=== PATIENT | female | born 1955 | race Caucasian/White ===

== ENCOUNTER 2016-03-06 17:37 | Inpatient (IN) ==
[2016-03-09] MEDS ORDERED: *HR* Warfarin 2.5 MG TABLET PO SCH (18:00)
[2016-03-09] MEDS ORDERED: Dextrose Gel 15 GM PO PRN ×2 (20:09)
[2016-03-09] MEDS ORDERED: D5% in Water 1,000 ML IV PRN (20:09)
[2016-03-09] MEDS ORDERED: *HR* Dextrose 50 % in Water (Syg) 50 ML SYRINGE IVP PRN (20:09)
[2016-03-09] MEDS ORDERED: Ondansetron 4 MG/2 ML VIAL IVP PRN (20:28)
[2016-03-09] MEDS ORDERED: Gabapentin 300 MG CAPSULE PO SCH (21:00)
[2016-03-09] MEDS ORDERED: *HR* Warfarin 5 MG TABLET PO SCH (21:00)
[2016-03-09] MEDS ORDERED: Insulin DETEMIR 100 UNIT/ML per UNIT SQ SCH (21:00)
[2016-03-09] MEDS ORDERED: Nystatin POWDER 30 GM BOTTLE TP SCH (21:00)
[2016-03-09] MEDS: Gabapentin 300 MG CAPSULE PO SCH (21:47)
[2016-03-09] MEDS: Nystatin POWDER 30 GM BOTTLE TP SCH (21:56)
[2016-03-09] MEDS: *HR* Warfarin 2.5 MG TABLET PO SCH (21:56)
[2016-03-10 05:33] LABS: Basophils % 0.2 %; Eosinophils # 0.1 K/mcL (0.0-0.6); Eosinophils % 0.4 %; Hematocrit 30.4 % (35.3-44.9); Immature Granulocytes % 1.8 % (0-4); Lymphocytes # 1.9 K/mcL (0.6-4.6); Lymphocytes % 10.3 %; Mean Corpuscular HGB Conc 32.9 g/dL (31.6-35.5); Mean Corpuscular Hemoglobin 30.7 pg (28.0-33.3); Mean Corpuscular Volume 93.3 fL (83.0-100.0); Mean Platelet Volume 9.1 fL (9.4-12.4); Monocytes % 6.7 %; Platelet Count 611 K/mcL (140-400); Red Blood Count 3.26 M/mcL (3.82-4.97); Red Cell Distribution Width 14.2 % (11.5-14.5); Segmented Neutrophils % 80.6 %
[2016-03-10 05:50] LABS: Monocytes # 1.3 K/mcL (0.0-1.3)
[2016-03-10 05:51] LABS: BUN/Creatinine Ratio 17 (6-26); Blood Urea Nitrogen 10 mg/dL (7-20); Calcium 9.1 mg/dL (8.6-10.8); Carbon Dioxide 26 mEq/L (19-29); Chloride 101 mEq/L (98-109); Glucose 157 mg/dL (70-99); Osmolality,Calculated 288 (280-300); Sodium 138 mEq/L (136-145); eGFR For African Americans > 60 (> 60); eGFR For Non-African Americans > 60 (> 60)
[2016-03-10 06:01] LABS: INR 1.9; Prothrombin Time 20.5 Seconds (9.4-12.1)
[2016-03-10 06:03] LABS: Activated Partial Thrombo Time 33.8 Seconds (26.0-36.0)
[2016-03-10] MEDS ORDERED: Insulin LISPRO 300 UNITS/3 ML VIAL SQ SCH (08:00)
[2016-03-10] MEDS: *HR* Glimepiride 2 MG TABLET PO SCH (08:46)
[2016-03-10] MEDS: Insulin LISPRO 300 UNITS/3 ML VIAL SQ SCH ×3 (08:46→16:46)
[2016-03-10] MEDS: Diltiazem CD (24hr) 300 MG CAPSULE PO SCH (08:49)
[2016-03-10] MEDS: Fluconazole 100 MG TABLET PO SCH (08:50)
[2016-03-10] MEDS: Nystatin POWDER 30 GM BOTTLE TP SCH ×2 (08:51→20:57)
[2016-03-10] MEDS: Gabapentin 300 MG CAPSULE PO SCH ×2 (08:51→20:56)
[2016-03-10] MEDS: WATER IVPB SCH (08:52)
[2016-03-10] MEDS: D5 IVPB SCH (08:52)
[2016-03-10] MEDS: (Terbinafine Hcl [Terbinafine Hcl] 250 MG) PO SCH (08:52)
[2016-03-10] MEDS: CEFTRIAXONE IVPB SCH (08:52)
[2016-03-10] MEDS: Multivit/Ca/Min/Fe/FA 1 TAB TABLET PO SCH (08:53)
[2016-03-10] MEDS ORDERED: *HR* Glimepiride 2 MG TABLET PO SCH (09:00)
[2016-03-10] MEDS ORDERED: Fluconazole 100 MG TABLET PO SCH (09:00)
[2016-03-10] MEDS ORDERED: CefTRIAXone 2,000 MG VIAL IVPB SCH (09:00)
--- NOTE | 2016-03-10 17:42 | Internal Med History&Physical ---
Date of Encounter: 03/10/16 Time of Encounter: 17:00 Assessment and Plan (1) Bacteremia due to group B Streptococcus Current visit: No Status: Acute She will continue with IV Rocephin to complete a six-week course. (2) Knee pain, right Current visit: No Status: Chronic She will have physical therapy and occupational therapy evaluation for the knee and overall mobility. Qualifiers: Chronicity: acute Qualified Code(s): M25.561 - Pain in right knee (3) Non-insulin dependent type 2 diabetes mellitus Current visit: No Status: Chronic Hemoglobin A1c was 7.4% on 10/12/2015. Recheck in a.m. Continue Amaryl, Levemir, and Accu-Cheks with SSI. (4) Atrial fibrillation with RVR Current visit: No Status: Resolved She will continue with Coumadin. Pro time/INR will be monitored. (5) Anemia Current visit: Yes Status: Chronic We will order anemia testing in a.m. Qualifiers: Anemia type: unspecified type Qualified Code(s): D64.9 - Anemia, unspecified Internal Medicine - H&P: HPI Chief complaint: Bacteremia Admitted From: Hospital to Hospital Transfer Plans for Post Hospital Care: Home History of present illness: Ms. Ambrose is a 60 year old female who was hospitalized at [facility] March 01 after presenting with one-week history of fever and nausea. She complained of right leg pain. She had group B strep found on PCR serology. The source of the bacteremia was not determined with certainty. She had right knee aspiration attempted without fluid obtained. It was felt she deserved 6 weeks of IV antibiotic treatment. She was admitted to [facility] swing bed for ongoing care needs. She had a right distal femur repair approximately 18 months ago with nell insertion. She denies other bone joint or muscle disorders. Past Med Surg Social Fam HX - Past Medical History Medical history: diabetes, hyperlipidemia, hypertension, other Psychiatric history: depression - Past Surgical History Surgical History: , carotid endarterectomy, orthopedic, other - Social History Smoking Status: Never smoker Smokeless Tobacco Status: No Alcohol use: rarely Drug use: none - Family History Father Hx Family Cardiac Disorders: Yes (CAD) Hx Family Endocrine Disorder: Yes (Diabetes) Mother Hx Family Cardiac Disorders: Yes (HTN) Internal Medicine - H&P: Meds Gabapentin [Neurontin] 300 mg PO BID 03/04/16 [History] Glimepiride [Amaryl] 2 mg PO DAILY 03/04/16 [History] Multivitamin [Multi-Day Vitamins] 1 each PO DAILY 03/04/16 [History] Pravastatin Sodium 80 mg PO HS 03/04/16 [History] Sertraline [Zoloft] 100 mg PO DAILY 03/04/16 [History] Terbinafine HCl 250 mg PO DAILY 03/04/16 [History] Acetaminophen [Tylenol] 650 mg PO Q6HR PRN #0 tablet 03/09/16 [Rx] CefTRIAXone [Rocephin] 2,000 mg IVPB DAILY 36 Days 03/09/16 [Rx] Dextrose 50 % in Water (Syg) [Dextrose 50% (Syg)] 25 ml IVP AD PRN #0 syringe [Rx] Dextrose Gel [Gluctose] 15 gm PO ONCE PRN #0 gel..gram. 03/09/16 [Rx] Dextrose Gel [Gluctose] 30 gm PO ONCE PRN #0 gel..gram. 03/09/16 [Rx] Diltiazem CD (24hr) [Cardizem CD] 300 mg PO DAILY 30 Days 03/09/16 [Rx] Fluconazole [Diflucan] 100 mg PO DAILY 42 Days 03/09/16 [Rx] Glucagon, Human Recombinant [Glucagen] 1 mg IM ONCE PRN #0 vial 03/09/16 [Rx] Insulin DETEMIR [Levemir] 20 unit SQ HS [id number] 03/09/16 [Rx] Insulin LISPRO [HumaLOG] 0 units SQ HS vial 03/09/16 [Rx] Insulin LISPRO [HumaLOG] 0 units SQ TIDAC vial 03/09/16 [Rx] Insulin LISPRO [HumaLOG] 7 units SQ TIDWM vial 03/09/16 [Rx] Nystatin POWDER [Nystop] 1 appl TP BID 30 Days 03/09/16 [Rx] Omeprazole [PriLOSEC] 20 mg PO DAILY@0630 capsule. 03/09/16 [Rx] Ondansetron [Zofran] 4 mg IVP Q8HR PRN #0 vial 03/09/16 [Rx] Sertraline [Zoloft] 50 mg PO DAILY tablet 03/09/16 [Rx] Warfarin [Coumadin] 2.5 mg PO DAILY@1800 30 Days 03/09/16 [Rx] Allergies metformin Allergy (Verified 03/04/16 10:31) Diarrhea All Systems PM: A 10-system review of systems was performed and is negative for pertinent findings except as documented above in the HPI. Review of systems: Gen.: She states her weight is stable past few months. Cardiovascular: She had atrial fibrillation with RVR during her recent [facility] stay. She converted to NSR with Cardizem. She is now on Coumadin. She denies IA hypertension heart failure DVT or pulmonary embolus Respiratory: She is a lifelong nonsmoker and has no known chronic lung disease GI: She denies disorders of her liver gallbladder or exocrine pancreas. : She denies hematuria dysuria or kidney stones Neurologic: She denies large distribution strokes or seizures. Endocrine: She was diagnosed with DM 2 approximately 3 years ago. She has hyperlipidemia but denies thyroid disease. Hematology/oncology: She has anemia but denies internal malignancies. No anemia workup has been done from review of archived labs. Psychiatric: She has depression but denies anxiety or other mental health issues Musk skeletal: As per history of present illness - Constitutional Vitals: Temp Pulse Resp BP Pulse Ox 99.8 F H 89 20 145/81 95 03/10/16 16:48 03/10/16 16:48 03/10/16 16:48 03/10/16 16:48 03/10/16 16:48 Exam: Gen.: She is a well-developed obese female who appears in no acute distress HEENT: Head is atraumatic and normocephalic. Eyes: EOMI. There is no scleral icterus. Mouth: Mucosa is moist. Neck: Supple and nontender. There is no thyromegaly or adenopathy noted. Heart: Regular without murmurs gallops or ectopics. Lungs: No wheezes or crackles are heard. Abdomen: Soft and nontender. No masses or guarding noted. Extremities: She has a well-healed scar over her right knee. There is no significant erythema noted of the knee. She has ecchymosis of the base of the right great toe and on the left second toe. She has trace edema of the dorsum of the feet and lower anterior shins bilaterally. Neurologic: Mental status: She is talkative and a good historian. Cranial nerves: Smile is symmetric. Forehead wrinkles bilaterally. Tongue protrudes midline. EOMI. Motor: There is no pronator drift. Cerebellar: Finger to nose is intact bilaterally. Skin: Warm and dry Internal Med - H&P Results - Labs CBC & Chem 7: 03/09/16 03:50 03/09/16 03:50 Labs: Short CBC 03/09/16 Range/Units 03:50 WBC 18.6 H (4.3-11.1) K/mcL Hgb 10.0 L (11.5-15.4) g/dL Hct 30.4 L (35.3-44.9) % Plt Count 611 H (140-400) K/mcL Neutrophils # 15.0 H (1.6-8.9) K/mcL BMP 03/09/16 03:50 Sodium 138 Potassium 4.0 Chloride 101 Carbon Dioxide 26 BUN 10 Creatinine 0.58 Glucose 157 H Calcium 9.1
[2016-03-10] MEDS: *HR* Warfarin 2.5 MG TABLET PO SCH (17:53)
[2016-03-10] MEDS: Insulin DETEMIR 100 UNIT/ML per UNIT SQ SCH (20:56)
[2016-03-11 07:39] LABS: INR 1.7; Prothrombin Time 18.4 Seconds (9.4-12.1)
[2016-03-11] MEDS: D5 IVPB SCH (08:44)
[2016-03-11] MEDS: WATER IVPB SCH (08:44)
[2016-03-11] MEDS: CEFTRIAXONE IVPB SCH (08:44)
[2016-03-11] MEDS: Diltiazem CD (24hr) 300 MG CAPSULE PO SCH (08:46)
[2016-03-11] MEDS: Multivit/Ca/Min/Fe/FA 1 TAB TABLET PO SCH (08:46)
[2016-03-11] MEDS: Fluconazole 100 MG TABLET PO SCH (08:46)
[2016-03-11] MEDS: Gabapentin 300 MG CAPSULE PO SCH ×2 (08:46→21:09)
[2016-03-11] MEDS: Nystatin POWDER 30 GM BOTTLE TP SCH ×2 (08:46→21:16)
[2016-03-11] MEDS: *HR* Glimepiride 2 MG TABLET PO SCH (08:46)
[2016-03-11] MEDS: (Terbinafine Hcl [Terbinafine Hcl] 250 MG) PO SCH (08:47)
[2016-03-11] MEDS: Insulin LISPRO 300 UNITS/3 ML VIAL SQ SCH ×3 (08:47→18:04)
[2016-03-11 13:29] LABS: Hemoglobin A1C 7.3 %
--- NOTE | 2016-03-11 13:56 | Internal Med Progress Note ---
Date of Encounter: 03/11/16 Time of Encounter: 13:51 - Assessment and plan (1) Bacteremia due to group B Streptococcus Current Visit: No Status: Acute Assessment and plan: 03/11/16 elevated white count continued IV Rocephin follow up a CBC on Wednesday (2) Knee pain, right Current Visit: No Status: Chronic Assessment and plan: 03/11/16 continue rehabilitation, concerned about infection in the knee Qualifiers: Chronicity: acute Qualified Code(s): M25.561 - Pain in right knee (3) Non-insulin dependent type 2 diabetes mellitus Current Visit: No Status: Chronic Assessment and plan: 03/11/16 continue the insulin sliding scale, probably elevated because of the infection (4) Anemia Current Visit: Yes Status: Chronic Assessment and plan: 03/11/16 probably stable follow up the CBC, MCV is normal Qualifiers: Anemia type: unspecified type Qualified Code(s): D64.9 - Anemia, unspecified (5) Atrial fibrillation with RVR Current Visit: No Status: Resolved Assessment and plan: 03/11/16 continue the Coumadin will check a PT/INR - Time Spent With Patient 25 - 35 minutes - Subjective Interval history: 6-year-old female presented from the [facility] on IV Rocephin for bacteremia from beta strep. It is unclear the source but she has been having right knee pain. There is a thought that it could be infection in the joint itself. They are unable to get an aspiration from the joint. She is here for IV Rocephin and rehabilitation. On 03/09 her white count was 18.6, INR 1.9. On 03/11 her INR was 1.7. Is going through her med list I saw Dilantin 300 mg at night. Patient denies any history of seizure disorder. She was unaware that she was on this medicine not sure when or why it was ordered. Her nurse agreed to look more into it. I will follow-up CBC and INR on Wednesday - Constitutional Vitals: Temp Pulse Resp BP Pulse Ox 98.3 F 72 16 173/74 94 L 03/11/16 09:08 03/11/16 09:08 03/11/16 09:08 03/11/16 09:08 03/11/16 09:08 Exam: General: Alert and oriented, no acute distress Lungs: Clear to auscultation bilaterally without wheezing or crackles Heart: Regular rate and rythms without murmer or rubs Abdomen: Soft, nontender, Internal Medicine: Result - Labs CBC & Chem 7: 03/09/16 03:50 03/09/16 03:50 - ABG Interpretation ABG results: PT/INR, D-dimer PT 18.4 Seconds (9.4-12.1) H 03/11/16 07:00 Consult Discharge Plan - Plan Referrals: NO,PCP [Primary Care Provider] - 1 week
[2016-03-11 15:22] LABS: % Iron Saturation 12 % (15-50); Iron 21 mcg/dL (50-170); Transferrin 127 mg/dL (180-382)
[2016-03-11 15:49] LABS: Ferritin 1445 ng/ml (5-204)
[2016-03-11 16:09] LABS: Folate 8.9 ng/mL (7.0-31.4)
[2016-03-11] MEDS: *HR* Warfarin 2.5 MG TABLET PO SCH (18:03)
[2016-03-11] MEDS: Insulin DETEMIR 100 UNIT/ML per UNIT SQ SCH (21:15)
[2016-03-12] MEDS: Multivit/Ca/Min/Fe/FA 1 TAB TABLET PO SCH (09:12)
[2016-03-12] MEDS: D5 IVPB SCH (09:12)
[2016-03-12] MEDS: Gabapentin 300 MG CAPSULE PO SCH ×2 (09:12→20:56)
[2016-03-12] MEDS: Diltiazem CD (24hr) 300 MG CAPSULE PO SCH (09:12)
[2016-03-12] MEDS: *HR* Glimepiride 2 MG TABLET PO SCH (09:12)
[2016-03-12] MEDS: CEFTRIAXONE IVPB SCH (09:12)
[2016-03-12] MEDS: Fluconazole 100 MG TABLET PO SCH (09:12)
[2016-03-12] MEDS: WATER IVPB SCH (09:12)
[2016-03-12] MEDS: (Terbinafine Hcl [Terbinafine Hcl] 250 MG) PO SCH (09:15)
[2016-03-12] MEDS: Insulin LISPRO 300 UNITS/3 ML VIAL SQ SCH ×3 (09:15→17:50)
[2016-03-12] MEDS: Nystatin POWDER 30 GM BOTTLE TP SCH ×2 (09:15→21:05)
--- NOTE | 2016-03-12 12:29 | Internal Med Progress Note ---
Date of Encounter: 03/12/16 Time of Encounter: 12: - Assessment and plan (1) Bacteremia due to group B Streptococcus Current Visit: No Status: Acute Assessment and plan: 03/11/16 elevated white count continued IV Rocephin follow up a CBC on WednesdayMarch 12 and 3 times a day Rocephin follow-up CBC tomorrow to establish if the white count is coming down (2) Knee pain, right Current Visit: No Status: Chronic Assessment and plan: 03/11/16 continue rehabilitation, concerned about infection in the knee continue the Neurontin. Qualifiers: Chronicity: acute Qualified Code(s): M25.561 - Pain in right knee (3) Non-insulin dependent type 2 diabetes mellitus Current Visit: No Status: Chronic Assessment and plan: 03/11/16 continue the insulin sliding scale, probably elevated because of the infection March 12 continue sliding scale insulin, BMP in the morning (4) Anemia Current Visit: Yes Status: Chronic Assessment and plan: 03/11/16 probably stable follow up the CBC, MCV is normal summer anemia stable ferritin is high even though iron is low, no iron supplement as needed Qualifiers: Anemia type: unspecified type Qualified Code(s): D64.9 - Anemia, unspecified (5) Atrial fibrillation with RVR Current Visit: No Status: Resolved Assessment and plan: 03/11/16 continue the Coumadin will check a PT/INR March 12 continue Coumadin, PT/INR in the morning - Subjective Interval history: 60-year-old female presented from the [facility] on IV Rocephin for bacteremia from beta strep. It is unclear the source but she has been having right knee pain. There is a thought that it could be infection in the joint itself. They are unable to get an aspiration from the joint. She is here for IV Rocephin and rehabilitation. On 03/09 her white count was 18.6, INR 1.9. On 03/11 her INR was 1.7. Is going through her med list I saw Dilantin 300 mg at night. Patient denies any history of seizure disorder. She was unaware that she was on this medicine not sure when or why it was ordered. Her nurse agreed to look more into it. I will follow-up CBC and INR on WednesdayMarch 12 patient's vital signs are stable ferritin level was 1445, she is unsure why she is on Dilantin was stopped and if she has any side effects she will let us know denies Being bipolar. She reports her blood sugars are not quite as well controlled now as when she was at home. They are running the 140s range. Answer questions, concerns addressed - Constitutional Vitals: Temp Pulse Resp BP Pulse Ox 98.2 F 75 18 131/70 95 03/12/16 06:36 03/12/16 12:13 03/12/16 12:13 03/12/16 12:13 03/12/16 12:13 Exam: General: Alert and oriented, no acute distress Lungs: Clear to auscultation bilaterally without wheezing or crackles Heart: Regular rate and rythms without murmer or rubs Abdomen: Soft, nontender, Extremities: no edema, left barry patch of thickened skin Internal Medicine: Result - Labs CBC & Chem 7: 03/09/16 03:50 03/09/16 03:50 - ABG Interpretation ABG results: PT/INR, D-dimer PT 18.4 Seconds (9.4-12.1) H 03/11/16 07:00 Consult Discharge Plan - Plan Referrals: NO,PCP [Primary Care Provider] - 1 week
[2016-03-12] MEDS: *HR* Warfarin 2.5 MG TABLET PO SCH (18:50)
[2016-03-12] MEDS: Insulin DETEMIR 100 UNIT/ML X5UNITS SQ SCH (21:05)
[2016-03-13 06:37] LABS: Basophils % 0.4 %; Eosinophils # 0.1 K/mcL (0.0-0.6); Eosinophils % 1.3 %; Hematocrit 29.5 % (35.3-44.9); Hemoglobin 9.4 g/dL (11.5-15.4); Immature Granulocytes % 0.9 % (0-4); Lymphocytes % 19.1 %; Mean Corpuscular HGB Conc 31.9 g/dL (31.6-35.5); Mean Corpuscular Hemoglobin 29.7 pg (28.0-33.3); Mean Corpuscular Volume 93.4 fL (83.0-100.0); Mean Platelet Volume 8.2 fL (9.4-12.4); Monocytes % 9.8 %; Neutrophils # 7.3 K/mcL (1.6-8.9); Platelet Count 593 K/mcL (140-400); Red Blood Count 3.16 M/mcL (3.82-4.97); Red Cell Distribution Width 13.9 % (11.5-14.5); Segmented Neutrophils % 68.5 %
[2016-03-13 06:55] LABS: BUN/Creatinine Ratio 15 (6-26); Blood Urea Nitrogen 9 mg/dL (7-20); Calcium 9.2 mg/dL (8.6-10.8); Carbon Dioxide 27 mEq/L (19-29); Chloride 101 mEq/L (98-109); Glucose 224 mg/dL (70-99); Osmolality,Calculated 290 (280-300); Potassium 4.4 mEq/L (3.5-4.5); Sodium 137 mEq/L (136-145); eGFR For African Americans > 60 (> 60); eGFR For Non-African Americans > 60 (> 60)
[2016-03-13 07:14] LABS: INR 1.5; Prothrombin Time 16.4 Seconds (9.4-12.1)
[2016-03-13] MEDS: Insulin LISPRO 300 UNITS/3 ML VIAL SQ SCH ×5 (08:03→22:07)
[2016-03-13] MEDS: Fluconazole 100 MG TABLET PO SCH (09:42)
[2016-03-13] MEDS: *HR* Glimepiride 2 MG TABLET PO SCH (09:42)
[2016-03-13] MEDS: D5 IVPB SCH (09:42)
[2016-03-13] MEDS: CEFTRIAXONE IVPB SCH (09:42)
[2016-03-13] MEDS: WATER IVPB SCH (09:42)
[2016-03-13] MEDS: Multivit/Ca/Min/Fe/FA 1 TAB TABLET PO SCH (09:42)
[2016-03-13] MEDS: Gabapentin 300 MG CAPSULE PO SCH ×2 (09:42→21:52)
[2016-03-13] MEDS: (Terbinafine Hcl [Terbinafine Hcl] 250 MG) PO SCH (09:43)
[2016-03-13] MEDS: Nystatin POWDER 30 GM BOTTLE TP SCH ×2 (09:43→21:53)
--- NOTE | 2016-03-13 13:43 | Internal Med Progress Note ---
Date of Encounter: 03/13/16 Time of Encounter: 13:35 - Assessment and plan (1) Bacteremia due to group B Streptococcus Current Visit: No Status: Acute Assessment and plan: 03/11/16 elevated white count continued IV Rocephin follow up a CBC on WednesdayMarch 12 and 3 times a day Rocephin follow-up CBC tomorrow to establish if the white count is coming down March 13. Continue IV Rocephin to complete 6 week course (2) Knee pain, right Current Visit: No Status: Chronic Assessment and plan: 03/11/16 continue rehabilitation, concerned about infection in the knee continue the Neurontin. March 13. She did not mention this today. Continue therapy and present pain management program Qualifiers: Chronicity: acute Qualified Code(s): M25.561 - Pain in right knee (3) Non-insulin dependent type 2 diabetes mellitus Current Visit: No Status: Chronic Assessment and plan: 03/11/16 continue the insulin sliding scale, probably elevated because of the infection March 12 continue sliding scale insulin, BMP in the morning March 13. Continue Amaryl, Levemir, and Accu-Cheks with SSI. Hemoglobin A1c 7.3% on 03/11/2016. (4) Atrial fibrillation with RVR Current Visit: No Status: Resolved Assessment and plan: 03/11/16 continue the Coumadin will check a PT/INR March 12 continue Coumadin, PT/INR in the morning March 13. Her INR is subtherapeutic. We will increase Coumadin dose. (5) Anemia Current Visit: Yes Status: Chronic Assessment and plan: 03/11/16 probably stable follow up the CBC, MCV is normal summer anemia stable ferritin is high even though iron is low, no iron supplement as needed March 13. Anemia testing 03/11/2016 showed no factor deficiency. Qualifiers: Anemia type: unspecified type Qualified Code(s): D64.9 - Anemia, unspecified - Subjective Interval history: March 13. She reports having some vaginal bleeding. She reports having this periodically at home to a milder extent. She denies any perineal pain. - Constitutional Vitals: Temp Pulse Resp BP Pulse Ox 98.5 F 81 17 151/73 94 L 03/13/16 06:58 03/13/16 06:58 03/13/16 06:58 03/13/16 06:58 03/13/16 06:58 Exam: She is resting comfortably in bed and is in no acute distress. Her affect is bright and cheerful. Heart is regular without murmurs gallops or ectopics. Lungs are clear anteriorly. Extremities show no edema. Internal Medicine: Result - Labs CBC & Chem 7: 03/13/16 06:31 03/13/16 06:31 Labs: Short CBC 03/13/16 Range/Units 06:31 WBC 10.6 (4.3-11.1) K/mcL Hgb 9.4 L (11.5-15.4) g/dL Hct 29.5 L (35.3-44.9) % Plt Count 593 H (140-400) K/mcL Neutrophils # 7.3 (1.6-8.9) K/mcL BMP 03/13/16 06:31 Sodium 137 Potassium 4.4 Chloride 101 Carbon Dioxide 27 BUN 9 Creatinine 0.59 Glucose 224 H Calcium 9.2 - ABG Interpretation ABG results: PT/INR, D-dimer PT 16.4 Seconds (9.4-12.1) H 03/13/16 06:31 Consult Discharge Plan - Plan Referrals: NO,PCP [Primary Care Provider] - 1 week
[2016-03-13] MEDS ORDERED: *HR* Warfarin 2.5 MG TABLET PO SCH (13:50)
[2016-03-13] MEDS ORDERED: D5% in Water 1,000 ML IV PRN (16:19)
[2016-03-13] MEDS: Diltiazem CD (24hr) 300 MG CAPSULE PO SCH (17:10)
[2016-03-13] MEDS: *HR* HYDROcodone/Acet 5/325 mg TABLET PO PRN ×2 (17:10→22:02)
[2016-03-13] MEDS: *HR* Warfarin 2 MG TABLET PO SCH (19:45)
[2016-03-13] MEDS: Insulin DETEMIR 100 UNIT/ML X5UNITS SQ SCH (21:51)
[2016-03-14] MEDS: Acetaminophen 325 MG TABLET PO PRN (07:07)
[2016-03-14] MEDS: Insulin LISPRO 300 UNITS/3 ML VIAL SQ SCH ×7 (07:59→21:57)
[2016-03-14] MEDS: *HR* Glimepiride 2 MG TABLET PO SCH (08:00)
[2016-03-14] MEDS: (Terbinafine Hcl [Terbinafine Hcl] 250 MG) PO SCH (09:12)
[2016-03-14] MEDS: Diltiazem CD (24hr) 300 MG CAPSULE PO SCH (09:14)
[2016-03-14] MEDS: CEFTRIAXONE IVPB SCH (09:15)
[2016-03-14] MEDS: D5 IVPB SCH (09:15)
[2016-03-14] MEDS: WATER IVPB SCH (09:15)
[2016-03-14] MEDS: Nystatin POWDER 30 GM BOTTLE TP SCH ×2 (09:15→21:57)
[2016-03-14] MEDS: Fluconazole 100 MG TABLET PO SCH (09:15)
[2016-03-14] MEDS: Multivit/Ca/Min/Fe/FA 1 TAB TABLET PO SCH (09:15)
[2016-03-14] MEDS: Gabapentin 300 MG CAPSULE PO SCH ×2 (09:15→21:55)
[2016-03-14] MEDS: *HR* HYDROcodone/Acet 5/325 mg TABLET PO PRN ×2 (16:25→21:55)
[2016-03-14] MEDS: *HR* Warfarin 2 MG TABLET PO SCH (18:10)
[2016-03-14] MEDS: Insulin DETEMIR 100 UNIT/ML X5UNITS SQ SCH (21:56)
[2016-03-15] MEDS: CEFTRIAXONE IVPB SCH (09:31)
[2016-03-15] MEDS: WATER IVPB SCH (09:31)
[2016-03-15] MEDS: D5 IVPB SCH (09:31)
[2016-03-15] MEDS: *HR* HYDROcodone/Acet 5/325 mg TABLET PO PRN (09:32)
[2016-03-15] MEDS: Diltiazem CD (24hr) 300 MG CAPSULE PO SCH (09:33)
[2016-03-15] MEDS: Fluconazole 100 MG TABLET PO SCH (09:33)
[2016-03-15] MEDS: *HR* Glimepiride 2 MG TABLET PO SCH (09:33)
[2016-03-15] MEDS: Nystatin POWDER 30 GM BOTTLE TP SCH ×2 (09:34→22:49)
[2016-03-15] MEDS: Multivit/Ca/Min/Fe/FA 1 TAB TABLET PO SCH (09:34)
[2016-03-15] MEDS: (Terbinafine Hcl [Terbinafine Hcl] 250 MG) PO SCH (09:34)
[2016-03-15] MEDS: Gabapentin 300 MG CAPSULE PO SCH ×2 (09:34→22:29)
[2016-03-15] MEDS: Insulin LISPRO 300 UNITS/3 ML VIAL SQ SCH ×7 (09:35→22:29)
--- NOTE | 2016-03-15 11:19 | Internal Med Progress Note ---
Date of Encounter: 03/15/16 Time of Encounter: 11:10 - Assessment and plan (1) Bacteremia due to group B Streptococcus Current Visit: No Status: Acute Assessment and plan: 03/11/16 elevated white count continued IV Rocephin follow up a CBC on WednesdayMarch 12 and 3 times a day Rocephin follow-up CBC tomorrow to establish if the white count is coming down March 13. Continue IV Rocephin to complete 6 week course (2) Knee pain, right Current Visit: No Status: Chronic Assessment and plan: 03/11/16 continue rehabilitation, concerned about infection in the knee continue the Neurontin. March 13. She did not mention this today. Continue therapy and present pain management program Qualifiers: Chronicity: acute Qualified Code(s): M25.561 - Pain in right knee (3) Non-insulin dependent type 2 diabetes mellitus Current Visit: No Status: Chronic Assessment and plan: 03/11/16 continue the insulin sliding scale, probably elevated because of the infection March 12 continue sliding scale insulin, BMP in the morning March 13. Continue Amaryl, Levemir, and Accu-Cheks with SSI. Hemoglobin A1c 7.3% on 03/11/2016. March 15. Accu-Cheks show good control. Continue present regimen (4) Atrial fibrillation with RVR Current Visit: No Status: Resolved Assessment and plan: 03/11/16 continue the Coumadin will check a PT/INR March 12 continue Coumadin, PT/INR in the morning March 13. Her INR is subtherapeutic. We will increase Coumadin dose. March 15. Continue Coumadin and monitor INR periodically. (5) Anemia Current Visit: Yes Status: Chronic Assessment and plan: 03/11/16 probably stable follow up the CBC, MCV is normal summer anemia stable ferritin is high even though iron is low, no iron supplement as needed March 13. Anemia testing 03/11/2016 showed no factor deficiency. Qualifiers: Anemia type: unspecified type Qualified Code(s): D64.9 - Anemia, unspecified - Subjective Interval history: March 13. She reports having some vaginal bleeding. She reports having this periodically at home to a milder extent. She denies any perineal pain. March 15. She reports no further vaginal bleeding and has no new complaints. - Constitutional Vitals: Temp Pulse Resp BP Pulse Ox 98.2 F 78 16 101/65 96 03/15/16 07:17 03/15/16 07:17 03/15/16 07:17 03/15/16 07:17 03/15/16 07:17 Exam: She is resting comfortably in bed and is in no acute distress. Her affect is bright and cheerful. Her extremities show 0 to trace pitting edema bilaterally. I reviewed her medications and lab results. Internal Medicine: Result - Labs CBC & Chem 7: 03/13/16 06:31 03/13/16 06:31 - ABG Interpretation ABG results: PT/INR, D-dimer PT 16.4 Seconds (9.4-12.1) H 03/13/16 06:31 Consult Discharge Plan - Plan Referrals: NO,PCP [Primary Care Provider] - 1 week
[2016-03-15] MEDS: *HR* Warfarin 2 MG TABLET PO SCH (17:25)
[2016-03-15] MEDS: Insulin DETEMIR 100 UNIT/ML X5UNITS SQ SCH (22:29)
[2016-03-16] MEDS: WATER IVPB SCH (09:24)
[2016-03-16] MEDS: CEFTRIAXONE IVPB SCH (09:24)
[2016-03-16] MEDS: D5 IVPB SCH (09:24)
[2016-03-16] MEDS: Insulin LISPRO 300 UNITS/3 ML VIAL SQ SCH ×7 (09:26→20:52)
[2016-03-16] MEDS: *HR* Glimepiride 2 MG TABLET PO SCH (09:29)
[2016-03-16] MEDS: Gabapentin 300 MG CAPSULE PO SCH ×2 (09:30→20:50)
[2016-03-16] MEDS: Multivit/Ca/Min/Fe/FA 1 TAB TABLET PO SCH (09:30)
[2016-03-16] MEDS: Fluconazole 100 MG TABLET PO SCH (09:30)
[2016-03-16] MEDS: Nystatin POWDER 30 GM BOTTLE TP SCH ×2 (09:31→20:52)
[2016-03-16] MEDS: (Terbinafine Hcl [Terbinafine Hcl] 250 MG) PO SCH (09:31)
[2016-03-16] MEDS: Diltiazem CD (24hr) 300 MG CAPSULE PO SCH (09:33)
[2016-03-16] MEDS: *HR* Warfarin 2 MG TABLET PO SCH (17:11)
[2016-03-16] MEDS: *HR* HYDROcodone/Acet 5/325 mg TABLET PO PRN (18:14)
[2016-03-16] MEDS: Insulin DETEMIR 100 UNIT/ML X5UNITS SQ SCH (20:51)
[2016-03-17] MEDS: Insulin LISPRO 300 UNITS/3 ML VIAL SQ SCH ×7 (07:43→21:16)
[2016-03-17] MEDS: *HR* Glimepiride 2 MG TABLET PO SCH (07:52)
[2016-03-17] MEDS: Gabapentin 300 MG CAPSULE PO SCH ×2 (09:33→21:16)
[2016-03-17] MEDS: Multivit/Ca/Min/Fe/FA 1 TAB TABLET PO SCH (09:33)
[2016-03-17] MEDS: WATER IVPB SCH (09:34)
[2016-03-17] MEDS: (Terbinafine Hcl [Terbinafine Hcl] 250 MG) PO SCH (09:34)
[2016-03-17] MEDS: Diltiazem CD (24hr) 300 MG CAPSULE PO SCH (09:34)
[2016-03-17] MEDS: CEFTRIAXONE IVPB SCH (09:34)
[2016-03-17] MEDS: D5 IVPB SCH (09:34)
[2016-03-17] MEDS: Nystatin POWDER 30 GM BOTTLE TP SCH (09:34)
[2016-03-17] MEDS: Fluconazole 100 MG TABLET PO SCH (09:34)
--- NOTE | 2016-03-17 12:47 | Internal Med Progress Note ---
Date of Encounter: 03/17/16 Time of Encounter: 12:40 - Assessment and plan (1) Bacteremia due to group B Streptococcus Current Visit: No Status: Acute Assessment and plan: 03/11/16 elevated white count continued IV Rocephin follow up a CBC on WednesdayMarch 12 and 3 times a day Rocephin follow-up CBC tomorrow to establish if the white count is coming down March 13. Continue IV Rocephin to complete 6 week course (2) Knee pain, right Current Visit: No Status: Chronic Assessment and plan: 03/11/16 continue rehabilitation, concerned about infection in the knee continue the Neurontin. March 13. She did not mention this today. Continue therapy and present pain management program Qualifiers: Chronicity: acute Qualified Code(s): M25.561 - Pain in right knee (3) Non-insulin dependent type 2 diabetes mellitus Current Visit: No Status: Chronic Assessment and plan: 03/11/16 continue the insulin sliding scale, probably elevated because of the infection March 12 continue sliding scale insulin, BMP in the morning March 13. Continue Amaryl, Levemir, and Accu-Cheks with SSI. Hemoglobin A1c 7.3% on 03/11/2016. March 15. Accu-Cheks show good control. Continue present regimen (4) Atrial fibrillation with RVR Current Visit: No Status: Resolved Assessment and plan: 03/11/16 continue the Coumadin will check a PT/INR March 12 continue Coumadin, PT/INR in the morning March 13. Her INR is subtherapeutic. We will increase Coumadin dose. March 15. Continue Coumadin and monitor INR periodically. March 17. We will check ProTime in a.m. (5) Anemia Current Visit: Yes Status: Chronic Assessment and plan: 03/11/16 probably stable follow up the CBC, MCV is normal summer anemia stable ferritin is high even though iron is low, no iron supplement as needed March 13. Anemia testing 03/11/2016 showed no factor deficiency. Qualifiers: Anemia type: unspecified type Qualified Code(s): D64.9 - Anemia, unspecified - Subjective Interval history: March 13. She reports having some vaginal bleeding. She reports having this periodically at home to a milder extent. She denies any perineal pain. March 15. She reports no further vaginal bleeding and has no new complaints. March 17. She reports no further vaginal bleeding and feels better overall. She feels she is making progress in therapy. She is not quite back to her baseline level of function prior to hospitalization at [facility] however. - Constitutional Vitals: Temp Pulse Resp BP Pulse Ox 98.3 F 88 16 153/74 93 L 03/17/16 06:41 03/17/16 11:47 03/17/16 11:47 03/17/16 11:47 03/17/16 11:47 Exam: She is resting comfortably in bed and appears in no acute distress. I reviewed her medications and lab results. Internal Medicine: Result - Labs CBC & Chem 7: 03/13/16 06:31 03/13/16 06:31 - ABG Interpretation ABG results: PT/INR, D-dimer PT 16.4 Seconds (9.4-12.1) H 03/13/16 06:31 Consult Discharge Plan - Plan Referrals: NO,PCP [Primary Care Provider] - 1 week
[2016-03-17] MEDS: *HR* Warfarin 2 MG TABLET PO SCH (17:02)
[2016-03-17] MEDS: Insulin DETEMIR 100 UNIT/ML X5UNITS SQ SCH (21:16)
[2016-03-18] MEDS: Nystatin POWDER 30 GM BOTTLE TP SCH ×2 (00:41→08:11)
[2016-03-18] MEDS: *HR* HYDROcodone/Acet 5/325 mg TABLET PO PRN ×3 (00:45→22:03)
[2016-03-18 05:22] LABS: Basophils # 0.1 K/mcL (0.0-0.2); Basophils % 0.9 %; Eosinophils # 0.2 K/mcL (0.0-0.6); Eosinophils % 1.7 %; Hematocrit 30.1 % (35.3-44.9); Hemoglobin 9.6 g/dL (11.5-15.4); Immature Granulocytes % 0.4 % (0-4); Lymphocytes # 2.2 K/mcL (0.6-4.6); Lymphocytes % 23.6 %; Mean Corpuscular HGB Conc 31.9 g/dL (31.6-35.5); Mean Corpuscular Hemoglobin 29.9 pg (28.0-33.3); Mean Corpuscular Volume 93.8 fL (83.0-100.0); Mean Platelet Volume 8.3 fL (9.4-12.4); Monocytes # 0.9 K/mcL (0.0-1.3); Monocytes % 9.4 %; Platelet Count 546 K/mcL (140-400); Red Blood Count 3.21 M/mcL (3.82-4.97); Red Cell Distribution Width 13.6 % (11.5-14.5)
[2016-03-18 05:30] LABS: INR 1.4; Prothrombin Time 15.1 Seconds (9.4-12.1)
[2016-03-18] MEDS: *HR* Glimepiride 2 MG TABLET PO SCH (07:47)
[2016-03-18] MEDS: Insulin LISPRO 300 UNITS/3 ML VIAL SQ SCH ×7 (07:50→21:40)
[2016-03-18] MEDS: Multivit/Ca/Min/Fe/FA 1 TAB TABLET PO SCH (08:04)
[2016-03-18] MEDS: Gabapentin 300 MG CAPSULE PO SCH ×2 (08:04→22:03)
[2016-03-18] MEDS: Diltiazem CD (24hr) 300 MG CAPSULE PO SCH (08:05)
[2016-03-18] MEDS: Fluconazole 100 MG TABLET PO SCH (08:05)
[2016-03-18] MEDS: WATER IVPB SCH (08:06)
[2016-03-18] MEDS: D5 IVPB SCH (08:06)
[2016-03-18] MEDS: CEFTRIAXONE IVPB SCH (08:06)
[2016-03-18] MEDS: (Terbinafine Hcl [Terbinafine Hcl] 250 MG) PO SCH (08:10)
[2016-03-18] MEDS: *HR* Warfarin 2 MG TABLET PO SCH (17:20)
[2016-03-18] MEDS: Insulin DETEMIR 100 UNIT/ML X5UNITS SQ SCH (21:41)
[2016-03-19] MEDS: *HR* Glimepiride 2 MG TABLET PO SCH (06:34)
[2016-03-19] MEDS: *HR* HYDROcodone/Acet 5/325 mg TABLET PO PRN ×2 (06:35→19:06)
[2016-03-19] MEDS: Nystatin POWDER 30 GM BOTTLE TP SCH ×3 (06:41→23:03)
[2016-03-19] MEDS: Fluconazole 100 MG TABLET PO SCH (08:02)
[2016-03-19] MEDS: Diltiazem CD (24hr) 300 MG CAPSULE PO SCH (08:02)
[2016-03-19] MEDS: Gabapentin 300 MG CAPSULE PO SCH ×2 (08:02→21:10)
[2016-03-19] MEDS: Multivit/Ca/Min/Fe/FA 1 TAB TABLET PO SCH (08:02)
[2016-03-19] MEDS: Insulin LISPRO 300 UNITS/3 ML VIAL SQ SCH ×7 (08:02→21:11)
[2016-03-19] MEDS: (Terbinafine Hcl [Terbinafine Hcl] 250 MG) PO SCH (08:03)
[2016-03-19] MEDS: D5 IVPB SCH (08:03)
[2016-03-19] MEDS: CEFTRIAXONE IVPB SCH (08:03)
[2016-03-19] MEDS: WATER IVPB SCH (08:03)
--- NOTE | 2016-03-19 12:23 | Internal Med Progress Note ---
Date of Encounter: 03/19/16 Time of Encounter: 12:15 - Assessment and plan (1) Bacteremia due to group B Streptococcus Current Visit: No Status: Acute Assessment and plan: 03/11/16 elevated white count continued IV Rocephin follow up a CBC on WednesdayMarch 12 and 3 times a day Rocephin follow-up CBC tomorrow to establish if the white count is coming down March 13. Continue IV Rocephin to complete 6 week course March 19. Continue Rocephin. I explained to her that Rocephin could be administered by home health nurses at home if she gets clearance from the orthopedist/therapy to return home. (2) Knee pain, right Current Visit: No Status: Chronic Assessment and plan: 03/11/16 continue rehabilitation, concerned about infection in the knee continue the Neurontin. March 13. She did not mention this today. Continue therapy and present pain management program March 19. As per orthopedist Qualifiers: Chronicity: acute Qualified Code(s): M25.561 - Pain in right knee (3) Non-insulin dependent type 2 diabetes mellitus Current Visit: No Status: Chronic Assessment and plan: 03/11/16 continue the insulin sliding scale, probably elevated because of the infection March 12 continue sliding scale insulin, BMP in the morning March 13. Continue Amaryl, Levemir, and Accu-Cheks with SSI. Hemoglobin A1c 7.3% on 03/11/2016. March 15. Accu-Cheks show good control. Continue present regimen (4) Atrial fibrillation with RVR Current Visit: No Status: Resolved Assessment and plan: 03/11/16 continue the Coumadin will check a PT/INR March 12 continue Coumadin, PT/INR in the morning March 13. Her INR is subtherapeutic. We will increase Coumadin dose. March 15. Continue Coumadin and monitor INR periodically. March 17. We will check ProTime in a.m. March 19. Pro time is subtherapeutic. We will increase Coumadin dose. (5) Anemia Current Visit: Yes Status: Chronic Assessment and plan: 03/11/16 probably stable follow up the CBC, MCV is normal summer anemia stable ferritin is high even though iron is low, no iron supplement as needed March 13. Anemia testing 03/11/2016 showed no factor deficiency. Qualifiers: Anemia type: unspecified type Qualified Code(s): D64.9 - Anemia, unspecified - Subjective Interval history: March 13. She reports having some vaginal bleeding. She reports having this periodically at home to a milder extent. She denies any perineal pain. March 15. She reports no further vaginal bleeding and has no new complaints. March 17. She reports no further vaginal bleeding and feels better overall. She feels she is making progress in therapy. She is not quite back to her baseline level of function prior to hospitalization at [facility] however. March 19. She has no new complaints. She states she was seen at the orthopedist office this morning. She was told she should be nonweightbearing on her right leg and additional testing was needed for the knee. - Constitutional Vitals: Temp Pulse Resp BP Pulse Ox 98.7 F 87 18 129/69 93 L 03/19/16 06:34 03/19/16 06:34 03/19/16 06:34 03/19/16 06:34 03/19/16 07:45 Exam: She appears in no acute distress. Her affect is bright and cheerful. I reviewed her medications and lab results. Internal Medicine: Result - Labs CBC & Chem 7: 03/18/16 04:44 03/13/16 06:31 - ABG Interpretation ABG results: PT/INR, D-dimer PT 15.1 Seconds (9.4-12.1) H 03/18/16 04:44 Consult Discharge Plan - Plan Referrals: NO,PCP [Primary Care Provider] - 1 week
[2016-03-19] MEDS: *HR* Warfarin 2 MG TABLET PO SCH (17:44)
[2016-03-19] MEDS: Insulin DETEMIR 100 UNIT/ML X5UNITS SQ SCH (21:11)
[2016-03-20] MEDS: Gabapentin 300 MG CAPSULE PO SCH ×2 (08:04→21:05)
[2016-03-20] MEDS: *HR* Glimepiride 2 MG TABLET PO SCH (08:05)
[2016-03-20] MEDS: Multivit/Ca/Min/Fe/FA 1 TAB TABLET PO SCH (08:05)
[2016-03-20] MEDS: Diltiazem CD (24hr) 300 MG CAPSULE PO SCH (08:05)
[2016-03-20] MEDS: Fluconazole 100 MG TABLET PO SCH (08:05)
[2016-03-20] MEDS: Insulin LISPRO 300 UNITS/3 ML VIAL SQ SCH ×7 (09:25→21:08)
[2016-03-20] MEDS: CEFTRIAXONE IVPB SCH (09:26)
[2016-03-20] MEDS: Nystatin POWDER 30 GM BOTTLE TP SCH ×2 (09:26→21:07)
[2016-03-20] MEDS: D5 IVPB SCH (09:26)
[2016-03-20] MEDS: WATER IVPB SCH (09:26)
[2016-03-20] MEDS: (Terbinafine Hcl [Terbinafine Hcl] 250 MG) PO SCH (09:27)
[2016-03-20] MEDS: *HR* Warfarin 2 MG TABLET PO SCH (17:10)
[2016-03-20] MEDS: *HR* HYDROcodone/Acet 5/325 mg TABLET PO PRN (18:21)
[2016-03-20] MEDS: Acetaminophen 325 MG TABLET PO PRN (21:05)
[2016-03-20] MEDS: Insulin DETEMIR 100 UNIT/ML X5UNITS SQ SCH (21:06)
[2016-03-21] MEDS: Acetaminophen 325 MG TABLET PO PRN (08:06)
[2016-03-21] MEDS: *HR* Glimepiride 2 MG TABLET PO SCH (08:06)
[2016-03-21] MEDS: WATER IVPB SCH (08:07)
[2016-03-21] MEDS: Insulin LISPRO 300 UNITS/3 ML VIAL SQ SCH ×7 (08:07→21:40)
[2016-03-21] MEDS: Fluconazole 100 MG TABLET PO SCH (08:07)
[2016-03-21] MEDS: CEFTRIAXONE IVPB SCH (08:07)
[2016-03-21] MEDS: Multivit/Ca/Min/Fe/FA 1 TAB TABLET PO SCH (08:07)
[2016-03-21] MEDS: D5 IVPB SCH (08:07)
[2016-03-21] MEDS: Gabapentin 300 MG CAPSULE PO SCH ×2 (08:07→21:35)
[2016-03-21] MEDS: Diltiazem CD (24hr) 300 MG CAPSULE PO SCH (08:15)
[2016-03-21] MEDS: (Terbinafine Hcl [Terbinafine Hcl] 250 MG) PO SCH (11:03)
[2016-03-21] MEDS: Nystatin POWDER 30 GM BOTTLE TP SCH ×2 (17:38→21:38)
[2016-03-21] MEDS: *HR* Warfarin 2 MG TABLET PO SCH (17:43)
[2016-03-21] MEDS: *HR* HYDROcodone/Acet 5/325 mg TABLET PO PRN (21:38)
[2016-03-21] MEDS: Insulin DETEMIR 100 UNIT/ML X5UNITS SQ SCH (21:39)
[2016-03-22 06:39] LABS: Basophils # 0.1 K/mcL (0.0-0.2); Basophils % 0.6 %; Eosinophils # 0.3 K/mcL (0.0-0.6); Eosinophils % 2.9 %; Hematocrit 28.2 % (35.3-44.9); Hemoglobin 8.9 g/dL (11.5-15.4); Immature Granulocytes % 0.3 % (0-4); Lymphocytes # 2.2 K/mcL (0.6-4.6); Lymphocytes % 25.5 %; Mean Corpuscular HGB Conc 31.6 g/dL (31.6-35.5); Mean Corpuscular Hemoglobin 30.1 pg (28.0-33.3); Mean Corpuscular Volume 95.3 fL (83.0-100.0); Mean Platelet Volume 8.2 fL (9.4-12.4); Monocytes # 0.9 K/mcL (0.0-1.3); Monocytes % 10.1 %; Neutrophils # 5.3 K/mcL (1.6-8.9); Platelet Count 509 K/mcL (140-400); Red Blood Count 2.96 M/mcL (3.82-4.97); Red Cell Distribution Width 13.7 % (11.5-14.5); Segmented Neutrophils % 60.6 %
[2016-03-22 06:45] LABS: INR 1.5; Prothrombin Time 16.3 Seconds (9.4-12.1)
[2016-03-22] MEDS: Insulin LISPRO 300 UNITS/3 ML VIAL SQ SCH ×7 (07:50→21:13)
[2016-03-22] MEDS: *HR* Glimepiride 2 MG TABLET PO SCH (07:59)
[2016-03-22] MEDS: Fluconazole 100 MG TABLET PO SCH (08:00)
[2016-03-22] MEDS: Multivit/Ca/Min/Fe/FA 1 TAB TABLET PO SCH (08:00)
[2016-03-22] MEDS: Gabapentin 300 MG CAPSULE PO SCH ×2 (08:00→21:11)
[2016-03-22] MEDS: Diltiazem CD (24hr) 300 MG CAPSULE PO SCH (08:01)
[2016-03-22] MEDS: (Terbinafine Hcl [Terbinafine Hcl] 250 MG) PO SCH (08:02)
[2016-03-22] MEDS: CEFTRIAXONE IVPB SCH (08:06)
[2016-03-22] MEDS: WATER IVPB SCH (08:06)
[2016-03-22] MEDS: D5 IVPB SCH (08:06)
[2016-03-22] MEDS: Nystatin POWDER 30 GM BOTTLE TP SCH ×2 (09:00→21:10)
--- NOTE | 2016-03-22 15:38 | Internal Med Progress Note ---
Date of Encounter: 03/22/16 Time of Encounter: 15:25 - Assessment and plan (1) Bacteremia due to group B Streptococcus Current Visit: No Status: Acute Assessment and plan: 03/11/16 elevated white count continued IV Rocephin follow up a CBC on WednesdayMarch 12 and 3 times a day Rocephin follow-up CBC tomorrow to establish if the white count is coming down March 13. Continue IV Rocephin to complete 6 week course March 19. Continue Rocephin. I explained to her that Rocephin could be administered by home health nurses at home if she gets clearance from the orthopedist/therapy to return home. March 22. Continue Rocephin. I will add lactobacillus. She is eating yogurt regularly. I will discontinue PPI. (2) Knee pain, right Current Visit: No Status: Chronic Assessment and plan: 03/11/16 continue rehabilitation, concerned about infection in the knee continue the Neurontin. March 13. She did not mention this today. Continue therapy and present pain management program March 19. As per orthopedist Qualifiers: Chronicity: acute Qualified Code(s): M25.561 - Pain in right knee (3) Non-insulin dependent type 2 diabetes mellitus Current Visit: No Status: Chronic Assessment and plan: 03/11/16 continue the insulin sliding scale, probably elevated because of the infection March 12 continue sliding scale insulin, BMP in the morning March 13. Continue Amaryl, Levemir, and Accu-Cheks with SSI. Hemoglobin A1c 7.3% on 03/11/2016. March 15. Accu-Cheks show good control. Continue present regimen (4) Atrial fibrillation with RVR Current Visit: No Status: Resolved Assessment and plan: 03/11/16 continue the Coumadin will check a PT/INR March 12 continue Coumadin, PT/INR in the morning March 13. Her INR is subtherapeutic. We will increase Coumadin dose. March 15. Continue Coumadin and monitor INR periodically. March 17. We will check ProTime in a.m. March 19. Pro time is subtherapeutic. We will increase Coumadin dose. March 22. Pro time is still subtherapeutic. We will increase Coumadin dose to 4.5 mg daily. (5) Anemia Current Visit: Yes Status: Chronic Assessment and plan: 03/11/16 probably stable follow up the CBC, MCV is normal summer anemia stable ferritin is high even though iron is low, no iron supplement as needed March 13. Anemia testing 03/11/2016 showed no factor deficiency. Qualifiers: Anemia type: unspecified type Qualified Code(s): D64.9 - Anemia, unspecified - Subjective Interval history: March 13. She reports having some vaginal bleeding. She reports having this periodically at home to a milder extent. She denies any perineal pain. March 15. She reports no further vaginal bleeding and has no new complaints. March 17. She reports no further vaginal bleeding and feels better overall. She feels she is making progress in therapy. She is not quite back to her baseline level of function prior to hospitalization at [facility] however. March 19. She has no new complaints. She states she was seen at the orthopedist office this morning. She was told she should be nonweightbearing on her right leg and additional testing was needed for the knee. March 22. She has no new complaints except right knee pain which started last week. She reports she is to get a "3-D study" of the knee but is uncertain exactly what test the orthopedist is referring to. - Constitutional Vitals: Temp Pulse Resp BP Pulse Ox 97.6 F 75 18 123/76 93 L 03/22/16 06:27 03/22/16 06:27 03/22/16 06:27 03/22/16 06:27 03/22/16 06:27 Exam: She is resting comfortably in bed and appears in no acute distress. Her affect is bright and cheerful. I reviewed her medications and lab results. Internal Medicine: Result - Labs CBC & Chem 7: 03/22/16 05:45 03/13/16 06:31 Labs: Short CBC 03/22/16 Range/Units 05:45 WBC 8.7 (4.3-11.1) K/mcL Hgb 8.9 L (11.5-15.4) g/dL Hct 28.2 L (35.3-44.9) % Plt Count 509 H (140-400) K/mcL Neutrophils # 5.3 (1.6-8.9) K/mcL - ABG Interpretation ABG results: PT/INR, D-dimer PT 16.3 Seconds (9.4-12.1) H 03/22/16 05:45 Consult Discharge Plan - Plan Referrals: NO,PCP [Primary Care Provider] - 1 week
[2016-03-22] MEDS: *HR* Warfarin 2 MG TABLET PO SCH (18:09)
[2016-03-22] MEDS: *HR* Warfarin 1 MG TABLET PO SCH (18:10)
[2016-03-22] MEDS: *HR* HYDROcodone/Acet 5/325 mg TABLET PO PRN (19:40)
[2016-03-22] MEDS: Lactobacillus 1 EACH CAP.SPRINK PO SCH (21:10)
[2016-03-22] MEDS: Insulin DETEMIR 100 UNIT/ML X5UNITS SQ SCH (21:19)
[2016-03-23] MEDS: Gabapentin 300 MG CAPSULE PO SCH ×2 (09:15→21:34)
[2016-03-23] MEDS: Lactobacillus 1 EACH CAP.SPRINK PO SCH ×2 (09:15→21:34)
[2016-03-23] MEDS: Diltiazem CD (24hr) 300 MG CAPSULE PO SCH (09:15)
[2016-03-23] MEDS: *HR* Glimepiride 2 MG TABLET PO SCH (09:15)
[2016-03-23] MEDS: Multivit/Ca/Min/Fe/FA 1 TAB TABLET PO SCH (09:15)
[2016-03-23] MEDS: D5 IVPB SCH (09:16)
[2016-03-23] MEDS: CEFTRIAXONE IVPB SCH (09:16)
[2016-03-23] MEDS: WATER IVPB SCH (09:16)
[2016-03-23] MEDS: (Terbinafine Hcl [Terbinafine Hcl] 250 MG) PO SCH (09:17)
[2016-03-23] MEDS: Insulin LISPRO 300 UNITS/3 ML VIAL SQ SCH ×7 (09:32→21:34)
[2016-03-23] MEDS: Nystatin POWDER 30 GM BOTTLE TP SCH ×2 (09:34→21:34)
[2016-03-23] MEDS: Fluconazole 100 MG TABLET PO SCH (09:34)
[2016-03-23] MEDS: *HR* Warfarin 1 MG TABLET PO SCH (17:04)
[2016-03-23] MEDS: *HR* Warfarin 2 MG TABLET PO SCH (17:04)
[2016-03-23] MEDS: Insulin DETEMIR 100 UNIT/ML X5UNITS SQ SCH (21:35)
[2016-03-24] MEDS: WATER IVPB SCH (08:36)
[2016-03-24] MEDS: D5 IVPB SCH (08:36)
[2016-03-24] MEDS: CEFTRIAXONE IVPB SCH (08:36)
[2016-03-24] MEDS: Lactobacillus 1 EACH CAP.SPRINK PO SCH ×2 (08:37→21:40)
[2016-03-24] MEDS: Insulin LISPRO 300 UNITS/3 ML VIAL SQ SCH ×7 (08:37→21:41)
[2016-03-24] MEDS: Multivit/Ca/Min/Fe/FA 1 TAB TABLET PO SCH (08:37)
[2016-03-24] MEDS: Diltiazem CD (24hr) 300 MG CAPSULE PO SCH (08:38)
[2016-03-24] MEDS: *HR* Glimepiride 2 MG TABLET PO SCH (08:38)
[2016-03-24] MEDS: Fluconazole 100 MG TABLET PO SCH (08:38)
[2016-03-24] MEDS: Gabapentin 300 MG CAPSULE PO SCH ×2 (08:38→21:40)
[2016-03-24] MEDS: (Terbinafine Hcl [Terbinafine Hcl] 250 MG) PO SCH (09:01)
[2016-03-24] MEDS: *HR* Warfarin 2 MG TABLET PO SCH (17:20)
[2016-03-24] MEDS: *HR* Warfarin 1 MG TABLET PO SCH (17:20)
[2016-03-24] MEDS: Nystatin POWDER 30 GM BOTTLE TP SCH ×2 (17:20→21:42)
[2016-03-24] MEDS: *HR* HYDROcodone/Acet 5/325 mg TABLET PO PRN (21:40)
[2016-03-24] MEDS: Insulin DETEMIR 100 UNIT/ML X5UNITS SQ SCH (21:41)
[2016-03-25] MEDS: Diltiazem CD (24hr) 300 MG CAPSULE PO SCH (08:45)
[2016-03-25] MEDS: Gabapentin 300 MG CAPSULE PO SCH ×2 (08:45→20:44)
[2016-03-25] MEDS: Multivit/Ca/Min/Fe/FA 1 TAB TABLET PO SCH (08:45)
[2016-03-25] MEDS: *HR* Glimepiride 2 MG TABLET PO SCH (08:45)
[2016-03-25] MEDS: (Terbinafine Hcl [Terbinafine Hcl] 250 MG) PO SCH (11:28)
[2016-03-25] MEDS: Nystatin POWDER 30 GM BOTTLE TP SCH ×2 (11:28→20:54)
[2016-03-25] MEDS: Insulin LISPRO 300 UNITS/3 ML VIAL SQ SCH ×7 (11:29→20:44)
[2016-03-25] MEDS: Lactobacillus 1 EACH CAP.SPRINK PO SCH ×2 (11:29→20:44)
[2016-03-25] MEDS: *HR* HYDROcodone/Acet 5/325 mg TABLET PO PRN ×2 (13:40→18:42)
--- NOTE | 2016-03-25 17:36 | Internal Med Progress Note ---
Date of Encounter: 03/25/16 Time of Encounter: 17:25 - Assessment and plan (1) Bacteremia due to group B Streptococcus Current Visit: No Status: Acute Assessment and plan: 03/11/16 elevated white count continued IV Rocephin follow up a CBC on WednesdayMarch 12 and 3 times a day Rocephin follow-up CBC tomorrow to establish if the white count is coming down March 13. Continue IV Rocephin to complete 6 week course March 19. Continue Rocephin. I explained to her that Rocephin could be administered by home health nurses at home if she gets clearance from the orthopedist/therapy to return home. March 22. Continue Rocephin. I will add lactobacillus. She is eating yogurt regularly. I will discontinue PPI. (2) Knee pain, right Current Visit: No Status: Chronic Assessment and plan: 03/11/16 continue rehabilitation, concerned about infection in the knee continue the Neurontin. March 13. She did not mention this today. Continue therapy and present pain management program March 19. As per orthopedist Qualifiers: Chronicity: acute Qualified Code(s): M25.561 - Pain in right knee (3) Non-insulin dependent type 2 diabetes mellitus Current Visit: No Status: Chronic Assessment and plan: 03/11/16 continue the insulin sliding scale, probably elevated because of the infection March 12 continue sliding scale insulin, BMP in the morning March 13. Continue Amaryl, Levemir, and Accu-Cheks with SSI. Hemoglobin A1c 7.3% on 03/11/2016. March 15. Accu-Cheks show good control. Continue present regimen (4) Atrial fibrillation with RVR Current Visit: No Status: Resolved Assessment and plan: 03/11/16 continue the Coumadin will check a PT/INR March 12 continue Coumadin, PT/INR in the morning March 13. Her INR is subtherapeutic. We will increase Coumadin dose. March 15. Continue Coumadin and monitor INR periodically. March 17. We will check ProTime in a.m. March 19. Pro time is subtherapeutic. We will increase Coumadin dose. March 22. Pro time is still subtherapeutic. We will increase Coumadin dose to 4.5 mg daily. March 25. Recheck pro time in a.m. (5) Anemia Current Visit: Yes Status: Chronic Assessment and plan: 03/11/16 probably stable follow up the CBC, MCV is normal summer anemia stable ferritin is high even though iron is low, no iron supplement as needed March 13. Anemia testing 03/11/2016 showed no factor deficiency. March 25. Recheck labs in a.m. Qualifiers: Anemia type: unspecified type Qualified Code(s): D64.9 - Anemia, unspecified - Subjective Interval history: March 13. She reports having some vaginal bleeding. She reports having this periodically at home to a milder extent. She denies any perineal pain. March 15. She reports no further vaginal bleeding and has no new complaints. March 17. She reports no further vaginal bleeding and feels better overall. She feels she is making progress in therapy. She is not quite back to her baseline level of function prior to hospitalization at [facility] however. March 19. She has no new complaints. She states she was seen at the orthopedist office this morning. She was told she should be nonweightbearing on her right leg and additional testing was needed for the knee. March 22. She has no new complaints except right knee pain which started last week. She reports she is to get a "3-D study" of the knee but is uncertain exactly what test the orthopedist is referring to. March 25. She has no new complaints. She states she is scheduled for a bone scan in one week - Constitutional Vitals: Temp Pulse Resp BP Pulse Ox 98.4 F 91 16 138/71 93 L 03/25/16 11:03 03/25/16 14:42 03/25/16 14:42 03/25/16 14:42 03/25/16 14:42 Exam: She is resting comfortably in a chair at bedside. Her affect is bright and cheerful. There is no significant pitting edema of her legs. I reviewed her medications and lab results. Internal Medicine: Result - Labs CBC & Chem 7: 03/22/16 05:45 03/13/16 06:31 - ABG Interpretation ABG results: PT/INR, D-dimer PT 16.3 Seconds (9.4-12.1) H 03/22/16 05:45 Consult Discharge Plan - Plan Referrals: NO,PCP [Primary Care Provider] - 1 week
[2016-03-25] MEDS: *HR* Warfarin 1 MG TABLET PO SCH (18:41)
[2016-03-25] MEDS: *HR* Warfarin 2 MG TABLET PO SCH (18:42)
[2016-03-25] MEDS: Insulin DETEMIR 100 UNIT/ML X5UNITS SQ SCH (20:45)
[2016-03-25] MEDS ORDERED: D5 IVPB SCH (23:00)
[2016-03-25] MEDS ORDERED: WATER IVPB SCH (23:00)
[2016-03-25] MEDS ORDERED: CEFTRIAXONE IVPB SCH (23:00)
[2016-03-26 06:00] LABS: Basophils % 0.4 %; Eosinophils # 0.3 K/mcL (0.0-0.6); Eosinophils % 3.7 %; Hematocrit 27.8 % (35.3-44.9); Hemoglobin 8.8 g/dL (11.5-15.4); Immature Granulocytes % 0.3 % (0-4); Lymphocytes % 22.2 %; Mean Corpuscular HGB Conc 31.7 g/dL (31.6-35.5); Mean Corpuscular Hemoglobin 29.5 pg (28.0-33.3); Mean Corpuscular Volume 93.3 fL (83.0-100.0); Mean Platelet Volume 8.2 fL (9.4-12.4); Monocytes # 0.9 K/mcL (0.0-1.3); Monocytes % 10.1 %; Neutrophils # 5.7 K/mcL (1.6-8.9); Platelet Count 523 K/mcL (140-400); Red Blood Count 2.98 M/mcL (3.82-4.97); Red Cell Distribution Width 13.6 % (11.5-14.5); Segmented Neutrophils % 63.3 %
[2016-03-26 06:10] LABS: INR 1.6
[2016-03-26] MEDS: *HR* HYDROcodone/Acet 5/325 mg TABLET PO PRN ×3 (08:00→16:30)
[2016-03-26] MEDS: *HR* Glimepiride 2 MG TABLET PO SCH (08:42)
[2016-03-26] MEDS: Insulin LISPRO 300 UNITS/3 ML VIAL SQ SCH ×7 (08:42→21:33)
[2016-03-26] MEDS: Diltiazem CD (24hr) 300 MG CAPSULE PO SCH (08:43)
[2016-03-26] MEDS: Lactobacillus 1 EACH CAP.SPRINK PO SCH ×2 (08:43→21:32)
[2016-03-26] MEDS: WATER IVPB SCH (08:43)
[2016-03-26] MEDS: CEFTRIAXONE IVPB SCH (08:43)
[2016-03-26] MEDS: Gabapentin 300 MG CAPSULE PO SCH ×2 (08:43→21:33)
[2016-03-26] MEDS: Nystatin POWDER 30 GM BOTTLE TP SCH ×2 (08:43→21:34)
[2016-03-26] MEDS: (Terbinafine Hcl [Terbinafine Hcl] 250 MG) PO SCH (08:43)
[2016-03-26] MEDS: D5 IVPB SCH (08:43)
[2016-03-26] MEDS: Multivit/Ca/Min/Fe/FA 1 TAB TABLET PO SCH (08:44)
[2016-03-26] MEDS: *HR* Warfarin 2 MG TABLET PO SCH (16:55)
[2016-03-26] MEDS: *HR* Warfarin 1 MG TABLET PO SCH (16:55)
[2016-03-26] MEDS: Insulin DETEMIR 100 UNIT/ML X5UNITS SQ SCH (21:33)
[2016-03-27] MEDS: *HR* Glimepiride 2 MG TABLET PO SCH (09:19)
[2016-03-27] MEDS: Lactobacillus 1 EACH CAP.SPRINK PO SCH ×2 (09:20→20:42)
[2016-03-27] MEDS: Gabapentin 300 MG CAPSULE PO SCH ×2 (09:20→20:42)
[2016-03-27] MEDS: D5 IVPB SCH (09:21)
[2016-03-27] MEDS: WATER IVPB SCH (09:21)
[2016-03-27] MEDS: Multivit/Ca/Min/Fe/FA 1 TAB TABLET PO SCH (09:21)
[2016-03-27] MEDS: CEFTRIAXONE IVPB SCH (09:21)
[2016-03-27] MEDS: Nystatin POWDER 30 GM BOTTLE TP SCH ×2 (09:22→20:43)
[2016-03-27] MEDS: (Terbinafine Hcl [Terbinafine Hcl] 250 MG) PO SCH (09:22)
[2016-03-27] MEDS: Insulin LISPRO 300 UNITS/3 ML VIAL SQ SCH ×7 (09:23→20:42)
[2016-03-27] MEDS: Diltiazem CD (24hr) 300 MG CAPSULE PO SCH (09:29)
--- NOTE | 2016-03-27 15:04 | Internal Med Progress Note ---
Date of Encounter: 03/27/16 Time of Encounter: 12:45 - Assessment and plan (1) Bacteremia due to group B Streptococcus Current Visit: No Status: Acute Assessment and plan: 03/11/16 elevated white count continued IV Rocephin follow up a CBC on WednesdayMarch 12 and 3 times a day Rocephin follow-up CBC tomorrow to establish if the white count is coming down March 13. Continue IV Rocephin to complete 6 week course March 19. Continue Rocephin. I explained to her that Rocephin could be administered by home health nurses at home if she gets clearance from the orthopedist/therapy to return home. March 22. Continue Rocephin. I will add lactobacillus. She is eating yogurt regularly. I will discontinue PPI. March 27. Continue Rocephin and lactobacillus (2) Knee pain, right Current Visit: No Status: Chronic Assessment and plan: 03/11/16 continue rehabilitation, concerned about infection in the knee continue the Neurontin. March 13. She did not mention this today. Continue therapy and present pain management program March 19. As per orthopedist Qualifiers: Chronicity: acute Qualified Code(s): M25.561 - Pain in right knee (3) Non-insulin dependent type 2 diabetes mellitus Current Visit: No Status: Chronic Assessment and plan: 03/11/16 continue the insulin sliding scale, probably elevated because of the infection March 12 continue sliding scale insulin, BMP in the morning March 13. Continue Amaryl, Levemir, and Accu-Cheks with SSI. Hemoglobin A1c 7.3% on 03/11/2016. March 15. Accu-Cheks show good control. Continue present regimen (4) Atrial fibrillation with RVR Current Visit: No Status: Resolved Assessment and plan: 03/11/16 continue the Coumadin will check a PT/INR March 12 continue Coumadin, PT/INR in the morning March 13. Her INR is subtherapeutic. We will increase Coumadin dose. March 15. Continue Coumadin and monitor INR periodically. March 17. We will check ProTime in a.m. March 19. Pro time is subtherapeutic. We will increase Coumadin dose. March 22. Pro time is still subtherapeutic. We will increase Coumadin dose to 4.5 mg daily. March 25. Recheck pro time in a.m. March 27. Pro time remains slightly subtherapeutic. We will increase Coumadin to 5 mg daily. (5) Anemia Current Visit: Yes Status: Chronic Assessment and plan: 03/11/16 probably stable follow up the CBC, MCV is normal summer anemia stable ferritin is high even though iron is low, no iron supplement as needed March 13. Anemia testing 03/11/2016 showed no factor deficiency. March 25. Recheck labs in a.m. March 27. Hemoglobin stable at 8.8 yesterday. Qualifiers: Anemia type: unspecified type Qualified Code(s): D64.9 - Anemia, unspecified - Subjective Interval history: March 13. She reports having some vaginal bleeding. She reports having this periodically at home to a milder extent. She denies any perineal pain. March 15. She reports no further vaginal bleeding and has no new complaints. March 17. She reports no further vaginal bleeding and feels better overall. She feels she is making progress in therapy. She is not quite back to her baseline level of function prior to hospitalization at [facility] however. March 19. She has no new complaints. She states she was seen at the orthopedist office this morning. She was told she should be nonweightbearing on her right leg and additional testing was needed for the knee. March 22. She has no new complaints except right knee pain which started last week. She reports she is to get a "3-D study" of the knee but is uncertain exactly what test the orthopedist is referring to. March 25. She has no new complaints. She states she is scheduled for a bone scan in one week March 27. She has no new complaints except occasional coughing. - Constitutional Vitals: Temp Pulse Resp BP Pulse Ox 98.3 F 101 18 125/76 93 L 03/27/16 06:46 03/27/16 13:32 03/27/16 13:32 03/27/16 13:32 03/27/16 13:32 Exam: She is sitting in a chair at bedside and appears comfortable. Her extremities showed no edema. Heart is regular without murmurs gallops or ectopics. Lungs are clear anteriorly. I reviewed her medications and lab results. Internal Medicine: Result - Labs CBC & Chem 7: 03/26/16 05:22 03/13/16 06:31 - ABG Interpretation ABG results: PT/INR, D-dimer PT 17.0 Seconds (9.4-12.1) H 03/26/16 05:22 Consult Discharge Plan - Plan Referrals: NO,PCP [Primary Care Provider] - 1 week
[2016-03-27] MEDS ORDERED: *HR* Warfarin 2 MG TABLET PO SCH (15:30)
[2016-03-27] MEDS: *HR* Warfarin 5 MG TABLET PO SCH (16:25)
[2016-03-27] MEDS: Acetaminophen 325 MG TABLET PO PRN (18:50)
[2016-03-27] MEDS: Insulin DETEMIR 100 UNIT/ML X5UNITS SQ SCH (20:42)
[2016-03-28] MEDS: Diltiazem CD (24hr) 300 MG CAPSULE PO SCH (08:00)
[2016-03-28] MEDS: Multivit/Ca/Min/Fe/FA 1 TAB TABLET PO SCH (08:00)
[2016-03-28] MEDS: Gabapentin 300 MG CAPSULE PO SCH ×2 (08:01→21:34)
[2016-03-28] MEDS: Lactobacillus 1 EACH CAP.SPRINK PO SCH ×2 (08:01→21:34)
[2016-03-28] MEDS: *HR* Glimepiride 2 MG TABLET PO SCH (08:02)
[2016-03-28] MEDS: Insulin LISPRO 300 UNITS/3 ML VIAL SQ SCH ×7 (08:06→21:38)
[2016-03-28] MEDS: (Terbinafine Hcl [Terbinafine Hcl] 250 MG) PO SCH (08:53)
[2016-03-28] MEDS: WATER IVPB SCH (08:59)
[2016-03-28] MEDS: D5 IVPB SCH (08:59)
[2016-03-28] MEDS: CEFTRIAXONE IVPB SCH (08:59)
[2016-03-28] MEDS: Nystatin POWDER 30 GM BOTTLE TP SCH (09:01)
[2016-03-28] MEDS: *HR* Warfarin 5 MG TABLET PO SCH (17:30)
[2016-03-28] MEDS: Insulin DETEMIR 100 UNIT/ML X5UNITS SQ SCH (21:37)
[2016-03-29] MEDS: Insulin LISPRO 300 UNITS/3 ML VIAL SQ SCH ×7 (07:52→21:37)
[2016-03-29] MEDS: Gabapentin 300 MG CAPSULE PO SCH ×2 (07:57→21:36)
[2016-03-29] MEDS: *HR* Glimepiride 2 MG TABLET PO SCH (07:57)
[2016-03-29] MEDS: Multivit/Ca/Min/Fe/FA 1 TAB TABLET PO SCH (07:59)
[2016-03-29] MEDS: Lactobacillus 1 EACH CAP.SPRINK PO SCH ×2 (08:00→21:36)
[2016-03-29] MEDS: DILTIAZEM CD PO SCH (08:00)
[2016-03-29] MEDS: CEFTRIAXONE IVPB SCH (08:09)
[2016-03-29] MEDS: WATER IVPB SCH (08:09)
[2016-03-29] MEDS: D5 IVPB SCH (08:09)
[2016-03-29] MEDS: (Terbinafine Hcl [Terbinafine Hcl] 250 MG) PO SCH (12:28)
[2016-03-29] MEDS: Nystatin POWDER 30 GM BOTTLE TP SCH ×3 (12:32→21:41)
[2016-03-29] MEDS: *HR* Warfarin 5 MG TABLET PO SCH (17:44)
[2016-03-29] MEDS: Insulin DETEMIR 100 UNIT/ML X5UNITS SQ SCH (21:40)
[2016-03-30] MEDS: CEFTRIAXONE IVPB SCH (09:10)
[2016-03-30] MEDS: *HR* Glimepiride 2 MG TABLET PO SCH (09:10)
[2016-03-30] MEDS: WATER IVPB SCH (09:10)
[2016-03-30] MEDS: Lactobacillus 1 EACH CAP.SPRINK PO SCH ×2 (09:10→21:31)
[2016-03-30] MEDS: D5 IVPB SCH (09:10)
[2016-03-30] MEDS: Insulin LISPRO 300 UNITS/3 ML VIAL SQ SCH ×7 (09:11→21:31)
[2016-03-30] MEDS: Multivit/Ca/Min/Fe/FA 1 TAB TABLET PO SCH (09:11)
[2016-03-30] MEDS: DILTIAZEM CD PO SCH (09:11)
[2016-03-30] MEDS: Gabapentin 300 MG CAPSULE PO SCH ×2 (09:11→21:31)
[2016-03-30] MEDS: Nystatin POWDER 30 GM BOTTLE TP SCH ×2 (09:12→21:32)
--- NOTE | 2016-03-30 12:31 | Internal Med Progress Note ---
Date of Encounter: 03/30/16 Time of Encounter: 12:20 - Assessment and plan (1) Bacteremia due to group B Streptococcus Current Visit: No Status: Acute Assessment and plan: 03/11/16 elevated white count continued IV Rocephin follow up a CBC on WednesdayMarch 12 and 3 times a day Rocephin follow-up CBC tomorrow to establish if the white count is coming down March 13. Continue IV Rocephin to complete 6 week course March 19. Continue Rocephin. I explained to her that Rocephin could be administered by home health nurses at home if she gets clearance from the orthopedist/therapy to return home. March 22. Continue Rocephin. I will add lactobacillus. She is eating yogurt regularly. I will discontinue PPI. March 27. Continue Rocephin and lactobacillus March 30. Continue Rocephin and lactobacillus (2) Knee pain, right Current Visit: No Status: Chronic Assessment and plan: 03/11/16 continue rehabilitation, concerned about infection in the knee continue the Neurontin. March 13. She did not mention this today. Continue therapy and present pain management program March 19. As per orthopedist Qualifiers: Chronicity: acute Qualified Code(s): M25.561 - Pain in right knee (3) Non-insulin dependent type 2 diabetes mellitus Current Visit: No Status: Chronic Assessment and plan: 03/11/16 continue the insulin sliding scale, probably elevated because of the infection March 12 continue sliding scale insulin, BMP in the morning March 13. Continue Amaryl, Levemir, and Accu-Cheks with SSI. Hemoglobin A1c 7.3% on 03/11/2016. March 15. Accu-Cheks show good control. Continue present regimen (4) Atrial fibrillation with RVR Current Visit: No Status: Resolved Assessment and plan: 03/11/16 continue the Coumadin will check a PT/INR March 12 continue Coumadin, PT/INR in the morning March 13. Her INR is subtherapeutic. We will increase Coumadin dose. March 15. Continue Coumadin and monitor INR periodically. March 17. We will check ProTime in a.m. March 19. Pro time is subtherapeutic. We will increase Coumadin dose. March 22. Pro time is still subtherapeutic. We will increase Coumadin dose to 4.5 mg daily. March 25. Recheck pro time in a.m. March 27. Pro time remains slightly subtherapeutic. We will increase Coumadin to 5 mg daily. March 30. Recheck pro time in a.m. with other labs (5) Anemia Current Visit: Yes Status: Chronic Assessment and plan: 03/11/16 probably stable follow up the CBC, MCV is normal summer anemia stable ferritin is high even though iron is low, no iron supplement as needed March 13. Anemia testing 03/11/2016 showed no factor deficiency. March 25. Recheck labs in a.m. March 27. Hemoglobin stable at 8.8 yesterday. March 30. Recheck labs in a.m. Qualifiers: Anemia type: unspecified type Qualified Code(s): D64.9 - Anemia, unspecified - Subjective Interval history: March 13. She reports having some vaginal bleeding. She reports having this periodically at home to a milder extent. She denies any perineal pain. March 15. She reports no further vaginal bleeding and has no new complaints. March 17. She reports no further vaginal bleeding and feels better overall. She feels she is making progress in therapy. She is not quite back to her baseline level of function prior to hospitalization at [facility] however. March 19. She has no new complaints. She states she was seen at the orthopedist office this morning. She was told she should be nonweightbearing on her right leg and additional testing was needed for the knee. March 22. She has no new complaints except right knee pain which started last week. She reports she is to get a "3-D study" of the knee but is uncertain exactly what test the orthopedist is referring to. March 25. She has no new complaints. She states she is scheduled for a bone scan in one week March 27. She has no new complaints except occasional coughing. March 30. She has no new complaints - Constitutional Vitals: Temp Pulse Resp BP Pulse Ox 98.6 F 96 18 117/68 93 L 03/30/16 06:57 03/30/16 06:57 03/30/16 06:57 03/30/16 06:57 03/30/16 06:57 Exam: She is sitting in a chair with her right leg elevated. She has no pain on movement of the toes or ankle on active or passive range of motion. There is no visible erythema. I reviewed her medications and lab results. Internal Medicine: Result - Labs CBC & Chem 7: 03/26/16 05:22 03/13/16 06:31 - ABG Interpretation ABG results: PT/INR, D-dimer PT 17.0 Seconds (9.4-12.1) H 03/26/16 05:22 Consult Discharge Plan - Plan Referrals: NO,PCP [Primary Care Provider] - 1 week
[2016-03-30] MEDS: (Terbinafine Hcl [Terbinafine Hcl] 250 MG) PO SCH (12:54)
[2016-03-30] MEDS: *HR* Warfarin 5 MG TABLET PO SCH (17:30)
[2016-03-30] MEDS: *HR* HYDROcodone/Acet 5/325 mg TABLET PO PRN (18:15)
[2016-03-30] MEDS: Insulin DETEMIR 100 UNIT/ML X5UNITS SQ SCH (21:31)
[2016-03-31 06:14] LABS: Basophils % 0.4 %; Eosinophils # 0.2 K/mcL (0.0-0.6); Eosinophils % 2.8 %; Hematocrit 27.1 % (35.3-44.9); Hemoglobin 8.5 g/dL (11.5-15.4); Immature Granulocytes % 0.5 % (0-4); Lymphocytes % 23.4 %; Mean Corpuscular HGB Conc 31.4 g/dL (31.6-35.5); Mean Corpuscular Hemoglobin 29.4 pg (28.0-33.3); Mean Corpuscular Volume 93.8 fL (83.0-100.0); Mean Platelet Volume 8.2 fL (9.4-12.4); Monocytes # 0.7 K/mcL (0.0-1.3); Monocytes % 8.5 %; Neutrophils # 5.4 K/mcL (1.6-8.9); Platelet Count 556 K/mcL (140-400); Red Blood Count 2.89 M/mcL (3.82-4.97); Red Cell Distribution Width 13.6 % (11.5-14.5); Segmented Neutrophils % 64.4 %
[2016-03-31 06:26] LABS: INR 1.5; Prothrombin Time 16.9 Seconds (9.4-12.1)
[2016-03-31 06:36] LABS: BUN/Creatinine Ratio 35 (6-26); Blood Urea Nitrogen 18 mg/dL (7-20); Calcium 8.8 mg/dL (8.6-10.8); Carbon Dioxide 26 mEq/L (19-29); Chloride 105 mEq/L (98-109); Glucose 117 mg/dL (70-99); Osmolality,Calculated 295 (280-300); Potassium 3.9 mEq/L (3.5-4.5); Sodium 141 mEq/L (136-145); eGFR For African Americans > 60 (> 60); eGFR For Non-African Americans > 60 (> 60)
[2016-03-31] MEDS: Nystatin POWDER 30 GM BOTTLE TP SCH ×2 (07:00→22:00)
[2016-03-31] MEDS: CEFTRIAXONE IVPB SCH (09:27)
[2016-03-31] MEDS: WATER IVPB SCH (09:27)
[2016-03-31] MEDS: D5 IVPB SCH (09:27)
[2016-03-31] MEDS: Lactobacillus 1 EACH CAP.SPRINK PO SCH ×2 (09:31→21:20)
[2016-03-31] MEDS: Gabapentin 300 MG CAPSULE PO SCH ×2 (09:31→21:20)
[2016-03-31] MEDS: *HR* Glimepiride 2 MG TABLET PO SCH (09:31)
[2016-03-31] MEDS: (Terbinafine Hcl [Terbinafine Hcl] 250 MG) PO SCH (09:32)
[2016-03-31] MEDS: Multivit/Ca/Min/Fe/FA 1 TAB TABLET PO SCH (09:32)
[2016-03-31] MEDS: Insulin LISPRO 300 UNITS/3 ML VIAL SQ SCH ×7 (09:33→21:21)
[2016-03-31] MEDS: DILTIAZEM CD PO SCH (09:35)
[2016-03-31] MEDS: *HR* Warfarin 2.5 MG TABLET PO SCH (18:50)
[2016-03-31] MEDS: *HR* Warfarin 2 MG TABLET PO SCH (18:58)
[2016-03-31] MEDS: *HR* HYDROcodone/Acet 5/325 mg TABLET PO PRN (21:20)
[2016-03-31] MEDS: Insulin DETEMIR 100 UNIT/ML X5UNITS SQ SCH (21:21)
[2016-04-01] MEDS: Insulin LISPRO 300 UNITS/3 ML VIAL SQ SCH ×7 (08:01→21:31)
[2016-04-01] MEDS: DILTIAZEM CD PO SCH (08:03)
[2016-04-01] MEDS: *HR* Glimepiride 2 MG TABLET PO SCH (08:03)
[2016-04-01] MEDS: Lactobacillus 1 EACH CAP.SPRINK PO SCH ×2 (08:03→21:27)
[2016-04-01] MEDS: D5 IVPB SCH (08:04)
[2016-04-01] MEDS: CEFTRIAXONE IVPB SCH (08:04)
[2016-04-01] MEDS: WATER IVPB SCH (08:04)
[2016-04-01] MEDS: Gabapentin 300 MG CAPSULE PO SCH ×2 (08:04→21:27)
[2016-04-01] MEDS: Multivit/Ca/Min/Fe/FA 1 TAB TABLET PO SCH (08:28)
[2016-04-01] MEDS: (Terbinafine Hcl [Terbinafine Hcl] 250 MG) PO SCH (08:29)
[2016-04-01] MEDS: Nystatin POWDER 30 GM BOTTLE TP SCH ×2 (11:05→21:28)
[2016-04-01] MEDS: *HR* Warfarin 2.5 MG TABLET PO SCH (17:58)
[2016-04-01] MEDS: *HR* Warfarin 2 MG TABLET PO SCH (17:58)
[2016-04-01] MEDS: Insulin DETEMIR 100 UNIT/ML X5UNITS SQ SCH (21:28)
[2016-04-02] MEDS: Multivit/Ca/Min/Fe/FA 1 TAB TABLET PO SCH (07:57)
[2016-04-02] MEDS: DILTIAZEM CD PO SCH (07:58)
[2016-04-02] MEDS: Gabapentin 300 MG CAPSULE PO SCH ×2 (07:59→21:38)
[2016-04-02] MEDS: *HR* Glimepiride 2 MG TABLET PO SCH (07:59)
[2016-04-02] MEDS: Lactobacillus 1 EACH CAP.SPRINK PO SCH ×2 (07:59→21:38)
[2016-04-02] MEDS: Insulin LISPRO 300 UNITS/3 ML VIAL SQ SCH ×7 (08:01→21:39)
[2016-04-02] MEDS: CEFTRIAXONE IVPB SCH (08:03)
[2016-04-02] MEDS: D5 IVPB SCH (08:03)
[2016-04-02] MEDS: WATER IVPB SCH (08:03)
[2016-04-02] MEDS: (Terbinafine Hcl [Terbinafine Hcl] 250 MG) PO SCH (08:11)
[2016-04-02] MEDS: Nystatin POWDER 30 GM BOTTLE TP SCH ×2 (12:04→21:38)
--- NOTE | 2016-04-02 13:51 | Internal Med Progress Note ---
Date of Encounter: 04/02/16 Time of Encounter: 12:20 - Assessment and plan (1) Bacteremia due to group B Streptococcus Current Visit: No Status: Acute Assessment and plan: 03/11/16 elevated white count continued IV Rocephin follow up a CBC on WednesdayMarch 12 and 3 times a day Rocephin follow-up CBC tomorrow to establish if the white count is coming down March 13. Continue IV Rocephin to complete 6 week course March 19. Continue Rocephin. I explained to her that Rocephin could be administered by home health nurses at home if she gets clearance from the orthopedist/therapy to return home. March 22. Continue Rocephin. I will add lactobacillus. She is eating yogurt regularly. I will discontinue PPI. March 27. Continue Rocephin and lactobacillus March 30. Continue Rocephin and lactobacillus (2) Knee pain, right Current Visit: No Status: Chronic Assessment and plan: 03/11/16 continue rehabilitation, concerned about infection in the knee continue the Neurontin. March 13. She did not mention this today. Continue therapy and present pain management program March 19. As per orthopedist April 02. Anticipate bone scan tomorrow with orthopedic follow-up Qualifiers: Chronicity: acute Qualified Code(s): M25.561 - Pain in right knee (3) Non-insulin dependent type 2 diabetes mellitus Current Visit: No Status: Chronic Assessment and plan: 03/11/16 continue the insulin sliding scale, probably elevated because of the infection March 12 continue sliding scale insulin, BMP in the morning March 13. Continue Amaryl, Levemir, and Accu-Cheks with SSI. Hemoglobin A1c 7.3% on 03/11/2016. March 15. Accu-Cheks show good control. Continue present regimen April 02. Accu-Cheks continued to show good control. Continue present regimen (4) Atrial fibrillation with RVR Current Visit: No Status: Resolved Assessment and plan: 03/11/16 continue the Coumadin will check a PT/INR March 12 continue Coumadin, PT/INR in the morning March 13. Her INR is subtherapeutic. We will increase Coumadin dose. March 15. Continue Coumadin and monitor INR periodically. March 17. We will check ProTime in a.m. March 19. Pro time is subtherapeutic. We will increase Coumadin dose. March 22. Pro time is still subtherapeutic. We will increase Coumadin dose to 4.5 mg daily. March 25. Recheck pro time in a.m. March 27. Pro time remains slightly subtherapeutic. We will increase Coumadin to 5 mg daily. March 30. Recheck pro time in a.m. with other labs. April 02. We will recheck pro time in a.m. The dose was increased to 6.5 mg daily on 03/31/2016 (5) Anemia Current Visit: Yes Status: Chronic Assessment and plan: 03/11/16 probably stable follow up the CBC, MCV is normal summer anemia stable ferritin is high even though iron is low, no iron supplement as needed March 13. Anemia testing 03/11/2016 showed no factor deficiency. March 25. Recheck labs in a.m. March 27. Hemoglobin stable at 8.8 yesterday. March 30. Recheck labs in a.m. April 02. Recheck labs in a.m. Qualifiers: Anemia type: unspecified type Qualified Code(s): D64.9 - Anemia, unspecified - Subjective Interval history: March 13. She reports having some vaginal bleeding. She reports having this periodically at home to a milder extent. She denies any perineal pain. March 15. She reports no further vaginal bleeding and has no new complaints. March 17. She reports no further vaginal bleeding and feels better overall. She feels she is making progress in therapy. She is not quite back to her baseline level of function prior to hospitalization at [facility] however. March 19. She has no new complaints. She states she was seen at the orthopedist office this morning. She was told she should be nonweightbearing on her right leg and additional testing was needed for the knee. March 22. She has no new complaints except right knee pain which started last week. She reports she is to get a "3-D study" of the knee but is uncertain exactly what test the orthopedist is referring to. March 25. She has no new complaints. She states she is scheduled for a bone scan in one week March 27. She has no new complaints except occasional coughing. March 30. She has no new complaints April 02. She has no new complaints. She states she is scheduled for a bone scan of her right leg tomorrow - Constitutional Vitals: Temp Pulse Resp BP Pulse Ox 97.8 F 75 18 117/69 95 04/02/16 11:44 04/02/16 11:44 04/02/16 11:44 04/02/16 11:44 04/02/16 11:44 Exam: Delmy is resting comfortably in a chair and appears in no acute distress. She has trace pitting edema at most of her lower legs bilaterally. I reviewed her medications and lab results. Internal Medicine: Result - Labs CBC & Chem 7: 03/31/16 05:40 03/31/16 05:40 - ABG Interpretation ABG results: PT/INR, D-dimer PT 16.9 Seconds (9.4-12.1) H 03/31/16 05:40 Consult Discharge Plan - Plan Referrals: NO,PCP [Primary Care Provider] - 1 week
[2016-04-02] MEDS: *HR* Warfarin 2 MG TABLET PO SCH (17:09)
[2016-04-02] MEDS: *HR* Warfarin 2.5 MG TABLET PO SCH (17:10)
[2016-04-02] MEDS: Insulin DETEMIR 100 UNIT/ML X5UNITS SQ SCH (21:39)
[2016-04-03 06:06] LABS: Basophils % 0.4 %; Eosinophils # 0.3 K/mcL (0.0-0.6); Eosinophils % 3.1 %; Hematocrit 25.8 % (35.3-44.9); Hemoglobin 8.2 g/dL (11.5-15.4); Immature Granulocytes % 0.4 % (0-4); Lymphocytes # 2.3 K/mcL (0.6-4.6); Lymphocytes % 27.5 %; Mean Corpuscular HGB Conc 31.8 g/dL (31.6-35.5); Mean Corpuscular Hemoglobin 29.5 pg (28.0-33.3); Mean Corpuscular Volume 92.8 fL (83.0-100.0); Mean Platelet Volume 8.3 fL (9.4-12.4); Monocytes # 0.8 K/mcL (0.0-1.3); Monocytes % 9.2 %; Neutrophils # 5.1 K/mcL (1.6-8.9); Platelet Count 554 K/mcL (140-400); Red Blood Count 2.78 M/mcL (3.82-4.97); Red Cell Distribution Width 14.1 % (11.5-14.5); Segmented Neutrophils % 59.4 %
[2016-04-03 06:22] LABS: INR 1.5; Prothrombin Time 16.7 Seconds (9.4-12.1)
[2016-04-03 06:32] LABS: BUN/Creatinine Ratio 20 (6-26); Blood Urea Nitrogen 11 mg/dL (7-20); Calcium 8.6 mg/dL (8.6-10.8); Carbon Dioxide 26 mEq/L (19-29); Chloride 104 mEq/L (98-109); Glucose 176 mg/dL (70-99); Osmolality,Calculated 292 (280-300); Potassium 3.9 mEq/L (3.5-4.5); Sodium 139 mEq/L (136-145); eGFR For African Americans > 60 (> 60); eGFR For Non-African Americans > 60 (> 60)
[2016-04-03] MEDS: Nystatin POWDER 30 GM BOTTLE TP SCH ×2 (08:04→21:02)
[2016-04-03] MEDS: Lactobacillus 1 EACH CAP.SPRINK PO SCH ×2 (08:05→21:01)
[2016-04-03] MEDS: Multivit/Ca/Min/Fe/FA 1 TAB TABLET PO SCH (08:05)
[2016-04-03] MEDS: DILTIAZEM CD PO SCH (08:05)
[2016-04-03] MEDS: Gabapentin 300 MG CAPSULE PO SCH ×2 (08:05→21:01)
[2016-04-03] MEDS: *HR* Glimepiride 2 MG TABLET PO SCH (08:05)
[2016-04-03] MEDS: *HR* HYDROcodone/Acet 5/325 mg TABLET PO PRN (08:06)
[2016-04-03] MEDS: Insulin LISPRO 300 UNITS/3 ML VIAL SQ SCH ×7 (08:07→21:05)
[2016-04-03] MEDS: D5 IVPB SCH (10:46)
[2016-04-03] MEDS: CEFTRIAXONE IVPB SCH (10:46)
[2016-04-03] MEDS: WATER IVPB SCH (10:46)
[2016-04-03] MEDS: *HR* Warfarin 5 MG TABLET PO SCH (17:57)
[2016-04-03] MEDS: *HR* Warfarin 2 MG TABLET PO SCH (17:57)
[2016-04-03] MEDS ORDERED: *HR* Warfarin 1 MG TABLET PO SCH (18:00)
--- NOTE | 2016-04-03 18:20 | Internal Med Progress Note ---
Date of Encounter: 04/03/16 Time of Encounter: 18:17 - Assessment and plan (1) Bacteremia due to group B Streptococcus Current Visit: No Status: Acute Assessment and plan: 03/11/16 elevated white count continued IV Rocephin follow up a CBC on WednesdayMarch 12 and 3 times a day Rocephin follow-up CBC tomorrow to establish if the white count is coming down March 13. Continue IV Rocephin to complete 6 week course March 19. Continue Rocephin. I explained to her that Rocephin could be administered by home health nurses at home if she gets clearance from the orthopedist/therapy to return home. March 22. Continue Rocephin. I will add lactobacillus. She is eating yogurt regularly. I will discontinue PPI. March 27. Continue Rocephin and lactobacillus March 30. Continue Rocephin and lactobacillus April 03 continue Rocephin and lactobacilli (2) Knee pain, right Current Visit: No Status: Chronic Assessment and plan: 03/11/16 continue rehabilitation, concerned about infection in the knee continue the Neurontin. March 13. She did not mention this today. Continue therapy and present pain management program March 19. As per orthopedist April 02. Anticipate bone scan tomorrow with orthopedic follow-up. April 03 scan today will follow-up the follow-up the results orthopedics to follow Qualifiers: Chronicity: acute Qualified Code(s): M25.561 - Pain in right knee (3) Non-insulin dependent type 2 diabetes mellitus Current Visit: No Status: Chronic Assessment and plan: 03/11/16 continue the insulin sliding scale, probably elevated because of the infection March 12 continue sliding scale insulin, BMP in the morning March 13. Continue Amaryl, Levemir, and Accu-Cheks with SSI. Hemoglobin A1c 7.3% on 03/11/2016. March 15. Accu-Cheks show good control. Continue present regimen April 02. Accu-Cheks continued to show good control. Continue present regimen April 03 to control continue the Amaryl, Levemir, Accu-Cheks with sliding scale (4) Anemia Current Visit: Yes Status: Chronic Assessment and plan: 03/11/16 probably stable follow up the CBC, MCV is normal summer anemia stable ferritin is high even though iron is low, no iron supplement as needed March 13. Anemia testing 03/11/2016 showed no factor deficiency. March 25. Recheck labs in a.m. March 27. Hemoglobin stable at 8.8 yesterday. March 30. Recheck labs in a.m. April 02. Recheck labs in a.m. April 04. hemoglobin dropped to 8.2 recheck labs on Wednesday Qualifiers: Anemia type: unspecified type Qualified Code(s): D64.9 - Anemia, unspecified (5) Atrial fibrillation with RVR Current Visit: No Status: Resolved Assessment and plan: 03/11/16 continue the Coumadin will check a PT/INR March 12 continue Coumadin, PT/INR in the morning March 13. Her INR is subtherapeutic. We will increase Coumadin dose. March 15. Continue Coumadin and monitor INR periodically. March 17. We will check ProTime in a.m. March 19. Pro time is subtherapeutic. We will increase Coumadin dose. March 22. Pro time is still subtherapeutic. We will increase Coumadin dose to 4.5 mg daily. March 25. Recheck pro time in a.m. March 27. Pro time remains slightly subtherapeutic. We will increase Coumadin to 5 mg daily. March 30. Recheck pro time in a.m. with other labs. April 02. We will recheck pro time in a.m. The dose was increased to 6.5 mg daily on 03/31/2016 April 03 increase the Coumadin 7 mg and recheck the pro-time on Wednesday - Time Spent With Patient 25 - 35 minutes (Therapeutic report) - Subjective Interval history: 60-year-old female presented from the [facility] on IV Rocephin for bacteremia from beta strep. It is unclear the source but she has been having right knee pain. There is a thought that it could be infection in the joint itself. They are unable to get an aspiration from the joint. She is here for IV Rocephin and rehabilitation. On 03/09 her white count was 18.6, INR 1.9. On 03/11 her INR was 1.7. Is going through her med list I saw Dilantin 300 mg at night. Patient denies any history of seizure disorder. She was unaware that she was on this medicine not sure when or why it was ordered. Her nurse agreed to look more into it. I will follow-up CBC and INR on WednesdayMarch 12 patient's vital signs are stable ferritin level was 1445, she is unsure why she is on Dilantin was stopped and if she has any side effects she will let us know denies Being bipolar. She reports her blood sugars are not quite as well controlled now as when she was at home. They are running the 140s range. Answer questions, concerns addressed April 03 patient's vital signs stable, I am covering for Dr. Lorenzo this weekend, she is having a bone scan today, chest pain or shortness of breath. Her INR is 1.5. There is initially confusion about her taking her medicines consistently. Pharmacy discussed it apparently she missed only 1 or 2 doses before they had discussed with her. Not taking her routine urine INR is 1.5 on 6.5 mg Coumadin. Her hemoglobin is 8.2. Which is trending down. - Constitutional Vitals: Temp Pulse Resp BP Pulse Ox 98.4 F 95 16 146/71 94 L 04/03/16 08:15 04/03/16 08:15 04/03/16 08:15 04/03/16 08:15 04/03/16 08:15 Exam: General: Alert and oriented, no acute distress Lungs: Clear to auscultation bilaterally without wheezing or crackles Heart: Regular rate and rythms without murmer or rubs Abdomen: Soft, nontender, Extremities: no edema, redness Internal Medicine: Result - Labs CBC & Chem 7: 04/03/16 04:59 04/03/16 04:59 Labs: Short CBC 04/03/16 Range/Units 04:59 WBC 8.5 (4.3-11.1) K/mcL Hgb 8.2 L (11.5-15.4) g/dL Hct 25.8 L (35.3-44.9) % Plt Count 554 H (140-400) K/mcL Neutrophils # 5.1 (1.6-8.9) K/mcL BMP 04/03/16 04:59 Sodium 139 Potassium 3.9 Chloride 104 Carbon Dioxide 26 BUN 11 Creatinine 0.56 L Glucose 176 H Calcium 8.6 - ABG Interpretation ABG results: PT/INR, D-dimer PT 16.7 Seconds (9.4-12.1) H 04/03/16 04:59 Consult Discharge Plan - Plan Referrals: NO,PCP [Primary Care Provider] - 1 week
[2016-04-03] MEDS: Insulin DETEMIR 100 UNIT/ML X5UNITS SQ SCH (21:05)
[2016-04-04] MEDS: Insulin LISPRO 300 UNITS/3 ML VIAL SQ SCH ×7 (08:26→22:04)
[2016-04-04] MEDS: *HR* Glimepiride 2 MG TABLET PO SCH (08:27)
[2016-04-04] MEDS: Multivit/Ca/Min/Fe/FA 1 TAB TABLET PO SCH (08:28)
[2016-04-04] MEDS: Lactobacillus 1 EACH CAP.SPRINK PO SCH ×2 (08:29→22:01)
[2016-04-04] MEDS: Gabapentin 300 MG CAPSULE PO SCH ×2 (08:29→22:00)
[2016-04-04] MEDS: DILTIAZEM CD PO SCH (08:29)
[2016-04-04] MEDS: Nystatin POWDER 30 GM BOTTLE TP SCH ×2 (08:30→22:01)
[2016-04-04] MEDS: CEFTRIAXONE IVPB SCH (08:31)
[2016-04-04] MEDS: D5 IVPB SCH (08:31)
[2016-04-04] MEDS: WATER IVPB SCH (08:31)
[2016-04-04] MEDS: *HR* Warfarin 5 MG TABLET PO SCH (17:43)
[2016-04-04] MEDS: *HR* Warfarin 2 MG TABLET PO SCH (17:43)
[2016-04-04] MEDS: Insulin DETEMIR 100 UNIT/ML X5UNITS SQ SCH (22:01)
[2016-04-05] MEDS: Insulin LISPRO 300 UNITS/3 ML VIAL SQ SCH ×7 (09:25→20:56)
[2016-04-05] MEDS: CEFTRIAXONE IVPB SCH (10:01)
[2016-04-05] MEDS: WATER IVPB SCH (10:01)
[2016-04-05] MEDS: D5 IVPB SCH (10:01)
[2016-04-05] MEDS: Multivit/Ca/Min/Fe/FA 1 TAB TABLET PO SCH (10:02)
[2016-04-05] MEDS: *HR* Glimepiride 2 MG TABLET PO SCH (10:02)
[2016-04-05] MEDS: Lactobacillus 1 EACH CAP.SPRINK PO SCH ×2 (10:03→20:54)
[2016-04-05] MEDS: Gabapentin 300 MG CAPSULE PO SCH ×2 (10:03→20:54)
[2016-04-05] MEDS: DILTIAZEM CD PO SCH (10:03)
[2016-04-05] MEDS: Nystatin POWDER 30 GM BOTTLE TP SCH ×2 (10:04→20:54)
[2016-04-05] MEDS: *HR* Warfarin 5 MG TABLET PO SCH (17:49)
[2016-04-05] MEDS: *HR* Warfarin 2 MG TABLET PO SCH (17:49)
[2016-04-05] MEDS: Insulin DETEMIR 100 UNIT/ML X5UNITS SQ SCH (20:55)
[2016-04-06 06:46] LABS: Basophils % 0.5 %; Eosinophils # 0.3 K/mcL (0.0-0.6); Eosinophils % 3.2 %; Hematocrit 27.4 % (35.3-44.9); Hemoglobin 8.5 g/dL (11.5-15.4); Immature Granulocytes % 0.4 % (0-4); Lymphocytes # 2.1 K/mcL (0.6-4.6); Lymphocytes % 24.1 %; Mean Corpuscular Volume 93.5 fL (83.0-100.0); Mean Platelet Volume 8.2 fL (9.4-12.4); Monocytes # 0.6 K/mcL (0.0-1.3); Monocytes % 6.9 %; Neutrophils # 5.6 K/mcL (1.6-8.9); Platelet Count 575 K/mcL (140-400); Red Blood Count 2.93 M/mcL (3.82-4.97); Red Cell Distribution Width 14.2 % (11.5-14.5); Segmented Neutrophils % 64.9 %
[2016-04-06 07:00] LABS: INR 1.6
[2016-04-06 07:08] LABS: BUN/Creatinine Ratio 23 (6-26); Blood Urea Nitrogen 14 mg/dL (7-20); Calcium 8.8 mg/dL (8.6-10.8); Carbon Dioxide 27 mEq/L (19-29); Chloride 103 mEq/L (98-109); Glucose 128 mg/dL (70-99); Osmolality,Calculated 294 (280-300); Potassium 4.4 mEq/L (3.5-4.5); Sodium 141 mEq/L (136-145); eGFR For African Americans > 60 (> 60); eGFR For Non-African Americans > 60 (> 60)
[2016-04-06] MEDS: Insulin LISPRO 300 UNITS/3 ML VIAL SQ SCH ×7 (07:57→22:37)
[2016-04-06] MEDS: *HR* Glimepiride 2 MG TABLET PO SCH (08:01)
[2016-04-06] MEDS: Gabapentin 300 MG CAPSULE PO SCH ×2 (08:01→22:37)
[2016-04-06] MEDS: Multivit/Ca/Min/Fe/FA 1 TAB TABLET PO SCH (08:01)
[2016-04-06] MEDS: Lactobacillus 1 EACH CAP.SPRINK PO SCH ×2 (08:01→22:37)
[2016-04-06] MEDS: DILTIAZEM CD PO SCH (08:02)
[2016-04-06] MEDS: Diltiazem CD (24hr) 300 MG CAPSULE PO SCH (08:29)
[2016-04-06] MEDS: *HR* HYDROcodone/Acet 5/325 mg TABLET PO PRN ×2 (11:41→17:37)
[2016-04-06] MEDS: CEFTRIAXONE IVPB SCH (11:42)
[2016-04-06] MEDS: D5 IVPB SCH (11:42)
[2016-04-06] MEDS: WATER IVPB SCH (11:42)
--- NOTE | 2016-04-06 17:25 | Internal Med Progress Note ---
Date of Encounter: 04/06/16 Time of Encounter: 17:15 - Assessment and plan (1) Bacteremia due to group B Streptococcus Current Visit: No Status: Acute Assessment and plan: 03/11/16 elevated white count continued IV Rocephin follow up a CBC on WednesdayMarch 12 and 3 times a day Rocephin follow-up CBC tomorrow to establish if the white count is coming down March 13. Continue IV Rocephin to complete 6 week course March 19. Continue Rocephin. I explained to her that Rocephin could be administered by home health nurses at home if she gets clearance from the orthopedist/therapy to return home. March 22. Continue Rocephin. I will add lactobacillus. She is eating yogurt regularly. I will discontinue PPI. March 27. Continue Rocephin and lactobacillus March 30. Continue Rocephin and lactobacillus April 03 continue Rocephin and lactobacilli April 06. She has now completed 4.5-5 weeks of IV antibiotic. Continue IV antibiotics for another 7-10 days. (2) Knee pain, right Current Visit: No Status: Chronic Assessment and plan: 03/11/16 continue rehabilitation, concerned about infection in the knee continue the Neurontin. March 13. She did not mention this today. Continue therapy and present pain management program March 19. As per orthopedist April 02. Anticipate bone scan tomorrow with orthopedic follow-up. April 03 scan today will follow-up the follow-up the results orthopedics to follow April 06. As per above. Will increase therapy intensity and anticipate discharge home in 7-10 days. Qualifiers: Chronicity: acute Qualified Code(s): M25.561 - Pain in right knee (3) Non-insulin dependent type 2 diabetes mellitus Current Visit: No Status: Chronic Assessment and plan: 03/11/16 continue the insulin sliding scale, probably elevated because of the infection March 12 continue sliding scale insulin, BMP in the morning March 13. Continue Amaryl, Levemir, and Accu-Cheks with SSI. Hemoglobin A1c 7.3% on 03/11/2016. March 15. Accu-Cheks show good control. Continue present regimen April 02. Accu-Cheks continued to show good control. Continue present regimen April 03 to control continue the Amaryl, Levemir, Accu-Cheks with sliding scale April 06. Accu-Cheks remain well controlled. Continue present regimen. (4) Atrial fibrillation with RVR Current Visit: No Status: Resolved Assessment and plan: 03/11/16 continue the Coumadin will check a PT/INR March 12 continue Coumadin, PT/INR in the morning March 13. Her INR is subtherapeutic. We will increase Coumadin dose. March 15. Continue Coumadin and monitor INR periodically. March 17. We will check ProTime in a.m. March 19. Pro time is subtherapeutic. We will increase Coumadin dose. March 22. Pro time is still subtherapeutic. We will increase Coumadin dose to 4.5 mg daily. March 25. Recheck pro time in a.m. March 27. Pro time remains slightly subtherapeutic. We will increase Coumadin to 5 mg daily. March 30. Recheck pro time in a.m. with other labs. April 02. We will recheck pro time in a.m. The dose was increased to 6.5 mg daily on 03/31/2016 April 03 increase the Coumadin 7 mg and recheck the pro-time on WednesdayApril 06. Continue Coumadin and monitoring pro time (5) Anemia Current Visit: Yes Status: Chronic Assessment and plan: 03/11/16 probably stable follow up the CBC, MCV is normal summer anemia stable ferritin is high even though iron is low, no iron supplement as needed March 13. Anemia testing 03/11/2016 showed no factor deficiency. March 25. Recheck labs in a.m. March 27. Hemoglobin stable at 8.8 yesterday. March 30. Recheck labs in a.m. April 02. Recheck labs in a.m. April 04. hemoglobin dropped to 8.2 recheck labs on Wednesday Qualifiers: Anemia type: unspecified type Qualified Code(s): D64.9 - Anemia, unspecified - Subjective Interval history: March 13. She reports having some vaginal bleeding. She reports having this periodically at home to a milder extent. She denies any perineal pain. March 15. She reports no further vaginal bleeding and has no new complaints. March 17. She reports no further vaginal bleeding and feels better overall. She feels she is making progress in therapy. She is not quite back to her baseline level of function prior to hospitalization at [facility] however. March 19. She has no new complaints. She states she was seen at the orthopedist office this morning. She was told she should be nonweightbearing on her right leg and additional testing was needed for the knee. March 22. She has no new complaints except right knee pain which started last week. She reports she is to get a "3-D study" of the knee but is uncertain exactly what test the orthopedist is referring to. March 25. She has no new complaints. She states she is scheduled for a bone scan in one week March 27. She has no new complaints except occasional coughing. March 30. She has no new complaints April 02. She has no new complaints. She states she is scheduled for a bone scan of her right leg tomorrow April 06. She has no new complaints. She had a good report on her bone scan and was cleared by her orthopedist to bear weight on the right leg. - Constitutional Vitals: Temp Pulse Resp BP Pulse Ox 97.8 F 107 18 119/64 93 L 04/06/16 06:22 04/06/16 14:25 04/06/16 14:25 04/06/16 14:25 04/06/16 14:25 Exam: She is sitting in a chair and appears comfortable overall. She has no new complaints. Her affect is bright and cheerful. I reviewed her medications, nuclear med report, and lab results. Internal Medicine: Result - Labs CBC & Chem 7: 04/06/16 04:50 04/06/16 04:50 Labs: Short CBC 04/06/16 Range/Units 04:50 WBC 8.6 (4.3-11.1) K/mcL Hgb 8.5 L (11.5-15.4) g/dL Hct 27.4 L (35.3-44.9) % Plt Count 575 H (140-400) K/mcL Neutrophils # 5.6 (1.6-8.9) K/mcL BMP 04/06/16 04:50 Sodium 141 Potassium 4.4 Chloride 103 Carbon Dioxide 27 BUN 14 Creatinine 0.60 Glucose 128 H Calcium 8.8 - ABG Interpretation ABG results: PT/INR, D-dimer PT 18.0 Seconds (9.4-12.1) H 04/06/16 04:50 Consult Discharge Plan - Plan Referrals: NO,PCP [Primary Care Provider] - 1 week
[2016-04-06] MEDS: *HR* Warfarin 5 MG TABLET PO SCH (17:38)
[2016-04-06] MEDS: *HR* Warfarin 2 MG TABLET PO SCH (17:38)
[2016-04-06] MEDS: Nystatin POWDER 30 GM BOTTLE TP SCH ×2 (17:38→22:39)
[2016-04-06] MEDS: Insulin DETEMIR 100 UNIT/ML X5UNITS SQ SCH (22:37)
[2016-04-07] MEDS: Multivit/Ca/Min/Fe/FA 1 TAB TABLET PO SCH (09:06)
[2016-04-07] MEDS: Diltiazem CD (24hr) 300 MG CAPSULE PO SCH (09:06)
[2016-04-07] MEDS: Lactobacillus 1 EACH CAP.SPRINK PO SCH ×2 (09:07→22:20)
[2016-04-07] MEDS: Gabapentin 300 MG CAPSULE PO SCH ×2 (09:08→22:21)
[2016-04-07] MEDS: *HR* Glimepiride 2 MG TABLET PO SCH (09:08)
[2016-04-07] MEDS: Insulin LISPRO 300 UNITS/3 ML VIAL SQ SCH ×7 (09:12→22:22)
[2016-04-07] MEDS: D5 IVPB SCH (10:33)
[2016-04-07] MEDS: WATER IVPB SCH (10:33)
[2016-04-07] MEDS: CEFTRIAXONE IVPB SCH (10:33)
[2016-04-07] MEDS: Nystatin POWDER 30 GM BOTTLE TP SCH ×2 (14:52→22:21)
[2016-04-07] MEDS: *HR* Warfarin 5 MG TABLET PO SCH (17:14)
[2016-04-07] MEDS: *HR* Warfarin 2 MG TABLET PO SCH (17:14)
[2016-04-07] MEDS: Insulin DETEMIR 100 UNIT/ML X5UNITS SQ SCH (22:21)
[2016-04-08] MEDS: Insulin LISPRO 300 UNITS/3 ML VIAL SQ SCH ×7 (07:49→21:57)
[2016-04-08] MEDS: CEFTRIAXONE IVPB SCH (08:45)
[2016-04-08] MEDS: WATER IVPB SCH (08:45)
[2016-04-08] MEDS: D5 IVPB SCH (08:45)
[2016-04-08] MEDS: Lactobacillus 1 EACH CAP.SPRINK PO SCH ×2 (10:00→21:57)
[2016-04-08] MEDS: *HR* Glimepiride 2 MG TABLET PO SCH (10:00)
[2016-04-08] MEDS: Multivit/Ca/Min/Fe/FA 1 TAB TABLET PO SCH (10:01)
[2016-04-08] MEDS: Gabapentin 300 MG CAPSULE PO SCH ×2 (10:02→21:57)
[2016-04-08] MEDS: Diltiazem CD (24hr) 300 MG CAPSULE PO SCH (10:05)
--- NOTE | 2016-04-08 15:59 | Internal Med Progress Note ---
Date of Encounter: 04/08/16 Time of Encounter: 15:50 - Assessment and plan (1) Bacteremia due to group B Streptococcus Current Visit: No Status: Acute Assessment and plan: 03/11/16 elevated white count continued IV Rocephin follow up a CBC on WednesdayMarch 12 and 3 times a day Rocephin follow-up CBC tomorrow to establish if the white count is coming down March 13. Continue IV Rocephin to complete 6 week course March 19. Continue Rocephin. I explained to her that Rocephin could be administered by home health nurses at home if she gets clearance from the orthopedist/therapy to return home. March 22. Continue Rocephin. I will add lactobacillus. She is eating yogurt regularly. I will discontinue PPI. March 27. Continue Rocephin and lactobacillus March 30. Continue Rocephin and lactobacillus April 03 continue Rocephin and lactobacilli April 06. She has now completed 4.5-5 weeks of IV antibiotic. Continue IV antibiotics for another 7-10 days. April 08. Anticipate stopping antibiotics April 15. (2) Knee pain, right Current Visit: No Status: Chronic Assessment and plan: 03/11/16 continue rehabilitation, concerned about infection in the knee continue the Neurontin. March 13. She did not mention this today. Continue therapy and present pain management program March 19. As per orthopedist April 02. Anticipate bone scan tomorrow with orthopedic follow-up. April 03 scan today will follow-up the follow-up the results orthopedics to follow April 06. As per above. Will increase therapy intensity and anticipate discharge home in 7-10 days. April 08. There was a consensus in swing bed conference today that she will likely need SNF placement Qualifiers: Chronicity: acute Qualified Code(s): M25.561 - Pain in right knee (3) Non-insulin dependent type 2 diabetes mellitus Current Visit: No Status: Chronic Assessment and plan: 03/11/16 continue the insulin sliding scale, probably elevated because of the infection March 12 continue sliding scale insulin, BMP in the morning March 13. Continue Amaryl, Levemir, and Accu-Cheks with SSI. Hemoglobin A1c 7.3% on 03/11/2016. March 15. Accu-Cheks show good control. Continue present regimen April 02. Accu-Cheks continued to show good control. Continue present regimen April 03 to control continue the Amaryl, Levemir, Accu-Cheks with sliding scale April 06. Accu-Cheks remain well controlled. Continue present regimen. (4) Atrial fibrillation with RVR Current Visit: No Status: Resolved Assessment and plan: 03/11/16 continue the Coumadin will check a PT/INR March 12 continue Coumadin, PT/INR in the morning March 13. Her INR is subtherapeutic. We will increase Coumadin dose. March 15. Continue Coumadin and monitor INR periodically. March 17. We will check ProTime in a.m. March 19. Pro time is subtherapeutic. We will increase Coumadin dose. March 22. Pro time is still subtherapeutic. We will increase Coumadin dose to 4.5 mg daily. March 25. Recheck pro time in a.m. March 27. Pro time remains slightly subtherapeutic. We will increase Coumadin to 5 mg daily. March 30. Recheck pro time in a.m. with other labs. April 02. We will recheck pro time in a.m. The dose was increased to 6.5 mg daily on 03/31/2016 April 03 increase the Coumadin 7 mg and recheck the pro-time on WednesdayApril 06. Continue Coumadin and monitoring pro time (5) Anemia Current Visit: Yes Status: Chronic Assessment and plan: 03/11/16 probably stable follow up the CBC, MCV is normal summer anemia stable ferritin is high even though iron is low, no iron supplement as needed March 13. Anemia testing 03/11/2016 showed no factor deficiency. March 25. Recheck labs in a.m. March 27. Hemoglobin stable at 8.8 yesterday. March 30. Recheck labs in a.m. April 02. Recheck labs in a.m. April 04. hemoglobin dropped to 8.2 recheck labs on WednesdayApril 08. Continue to monitor labs Qualifiers: Anemia type: unspecified type Qualified Code(s): D64.9 - Anemia, unspecified - Subjective Interval history: March 13. She reports having some vaginal bleeding. She reports having this periodically at home to a milder extent. She denies any perineal pain. March 15. She reports no further vaginal bleeding and has no new complaints. March 17. She reports no further vaginal bleeding and feels better overall. She feels she is making progress in therapy. She is not quite back to her baseline level of function prior to hospitalization at [facility] however. March 19. She has no new complaints. She states she was seen at the orthopedist office this morning. She was told she should be nonweightbearing on her right leg and additional testing was needed for the knee. March 22. She has no new complaints except right knee pain which started last week. She reports she is to get a "3-D study" of the knee but is uncertain exactly what test the orthopedist is referring to. March 25. She has no new complaints. She states she is scheduled for a bone scan in one week March 27. She has no new complaints except occasional coughing. March 30. She has no new complaints April 02. She has no new complaints. She states she is scheduled for a bone scan of her right leg tomorrow April 06. She has no new complaints. She had a good report on her bone scan and was cleared by her orthopedist to bear weight on the right leg. April 08. She has no new complaints. She is standing in therapy but is not progressing well as far as overall right leg function per therapist report. - Constitutional Vitals: Temp Pulse Resp BP Pulse Ox 97.8 F 97 16 110/67 94 L 04/08/16 07:09 04/08/16 07:09 04/08/16 07:09 04/08/16 07:09 04/08/16 07:09 Exam: She is sitting in a chair in no acute distress. Her legs show no pitting edema. Lungs were clear. I reviewed her medications and lab results. Internal Medicine: Result - Labs CBC & Chem 7: 04/06/16 04:50 04/06/16 04:50 - ABG Interpretation ABG results: PT/INR, D-dimer PT 18.0 Seconds (9.4-12.1) H 04/06/16 04:50 Consult Discharge Plan - Plan Referrals: NO,PCP [Primary Care Provider] - 1 week
[2016-04-08] MEDS: Nystatin POWDER 30 GM BOTTLE TP SCH ×2 (16:52→23:20)
[2016-04-08] MEDS: *HR* Warfarin 5 MG TABLET PO SCH (19:34)
[2016-04-08] MEDS: *HR* Warfarin 2 MG TABLET PO SCH (19:34)
[2016-04-08] MEDS: *HR* HYDROcodone/Acet 5/325 mg TABLET PO PRN (19:35)
[2016-04-08] MEDS: Insulin DETEMIR 100 UNIT/ML X5UNITS SQ SCH (21:58)
[2016-04-09] MEDS: Insulin LISPRO 300 UNITS/3 ML VIAL SQ SCH ×7 (08:01→22:35)
[2016-04-09] MEDS: D5 IVPB SCH (08:15)
[2016-04-09] MEDS: CEFTRIAXONE IVPB SCH (08:15)
[2016-04-09] MEDS: WATER IVPB SCH (08:15)
[2016-04-09] MEDS: Lactobacillus 1 EACH CAP.SPRINK PO SCH ×2 (08:18→22:30)
[2016-04-09] MEDS: *HR* Glimepiride 2 MG TABLET PO SCH (08:18)
[2016-04-09] MEDS: Multivit/Ca/Min/Fe/FA 1 TAB TABLET PO SCH (08:19)
[2016-04-09] MEDS: Gabapentin 300 MG CAPSULE PO SCH ×2 (08:19→22:31)
[2016-04-09] MEDS: Diltiazem CD (24hr) 300 MG CAPSULE PO SCH (08:21)
[2016-04-09] MEDS: *HR* Warfarin 2 MG TABLET PO SCH (17:31)
[2016-04-09] MEDS: *HR* Warfarin 5 MG TABLET PO SCH (17:31)
[2016-04-09] MEDS: Acetaminophen 325 MG TABLET PO PRN (22:31)
[2016-04-09] MEDS: Insulin DETEMIR 100 UNIT/ML X5UNITS SQ SCH (22:33)
[2016-04-10 07:02] LABS: Prothrombin Time 22.1 Seconds (9.4-12.1)
[2016-04-10] MEDS: *HR* Glimepiride 2 MG TABLET PO SCH (08:18)
[2016-04-10] MEDS: Diltiazem CD (24hr) 300 MG CAPSULE PO SCH (08:18)
[2016-04-10] MEDS: Lactobacillus 1 EACH CAP.SPRINK PO SCH ×2 (08:18→22:35)
[2016-04-10] MEDS: Multivit/Ca/Min/Fe/FA 1 TAB TABLET PO SCH (08:18)
[2016-04-10] MEDS: Insulin LISPRO 300 UNITS/3 ML VIAL SQ SCH ×7 (08:19→22:35)
[2016-04-10] MEDS: Gabapentin 300 MG CAPSULE PO SCH ×2 (08:19→22:36)
--- NOTE | 2016-04-10 15:40 | Internal Med Progress Note ---
Date of Encounter: 04/10/16 Time of Encounter: 15:25 - Assessment and plan (1) Bacteremia due to group B Streptococcus Current Visit: No Status: Acute Assessment and plan: 03/11/16 elevated white count continued IV Rocephin follow up a CBC on WednesdayMarch 12 and 3 times a day Rocephin follow-up CBC tomorrow to establish if the white count is coming down March 13. Continue IV Rocephin to complete 6 week course March 19. Continue Rocephin. I explained to her that Rocephin could be administered by home health nurses at home if she gets clearance from the orthopedist/therapy to return home. March 22. Continue Rocephin. I will add lactobacillus. She is eating yogurt regularly. I will discontinue PPI. March 27. Continue Rocephin and lactobacillus March 30. Continue Rocephin and lactobacillus April 03 continue Rocephin and lactobacilli April 06. She has now completed 4.5-5 weeks of IV antibiotic. Continue IV antibiotics for another 7-10 days. April 08. Anticipate stopping antibiotics April 15. (2) Knee pain, right Current Visit: No Status: Chronic Assessment and plan: 03/11/16 continue rehabilitation, concerned about infection in the knee continue the Neurontin. March 13. She did not mention this today. Continue therapy and present pain management program March 19. As per orthopedist April 02. Anticipate bone scan tomorrow with orthopedic follow-up. April 03 scan today will follow-up the follow-up the results orthopedics to follow April 06. As per above. Will increase therapy intensity and anticipate discharge home in 7-10 days. April 08. There was a consensus in swing bed conference today that she will likely need SNF placement April 10. Continue present treatment. Anticipate discharge to SNF April 13 Qualifiers: Chronicity: acute Qualified Code(s): M25.561 - Pain in right knee (3) Non-insulin dependent type 2 diabetes mellitus Current Visit: No Status: Chronic Assessment and plan: 03/11/16 continue the insulin sliding scale, probably elevated because of the infection March 12 continue sliding scale insulin, BMP in the morning March 13. Continue Amaryl, Levemir, and Accu-Cheks with SSI. Hemoglobin A1c 7.3% on 03/11/2016. March 15. Accu-Cheks show good control. Continue present regimen April 02. Accu-Cheks continued to show good control. Continue present regimen April 03 to control continue the Amaryl, Levemir, Accu-Cheks with sliding scale April 06. Accu-Cheks remain well controlled. Continue present regimen. (4) Atrial fibrillation with RVR Current Visit: No Status: Resolved Assessment and plan: 03/11/16 continue the Coumadin will check a PT/INR March 12 continue Coumadin, PT/INR in the morning March 13. Her INR is subtherapeutic. We will increase Coumadin dose. March 15. Continue Coumadin and monitor INR periodically. March 17. We will check ProTime in a.m. March 19. Pro time is subtherapeutic. We will increase Coumadin dose. March 22. Pro time is still subtherapeutic. We will increase Coumadin dose to 4.5 mg daily. March 25. Recheck pro time in a.m. March 27. Pro time remains slightly subtherapeutic. We will increase Coumadin to 5 mg daily. March 30. Recheck pro time in a.m. with other labs. April 02. We will recheck pro time in a.m. The dose was increased to 6.5 mg daily on 03/31/2016 April 03 increase the Coumadin 7 mg and recheck the pro-time on WednesdayApril 06. Continue Coumadin and monitoring pro time April 10. INR was 2.0 today. Continue present treatment (5) Anemia Current Visit: Yes Status: Chronic Assessment and plan: 03/11/16 probably stable follow up the CBC, MCV is normal summer anemia stable ferritin is high even though iron is low, no iron supplement as needed March 13. Anemia testing 03/11/2016 showed no factor deficiency. March 25. Recheck labs in a.m. March 27. Hemoglobin stable at 8.8 yesterday. March 30. Recheck labs in a.m. April 02. Recheck labs in a.m. April 04. hemoglobin dropped to 8.2 recheck labs on WednesdayApril 08. Continue to monitor labs Qualifiers: Anemia type: unspecified type Qualified Code(s): D64.9 - Anemia, unspecified - Subjective Interval history: March 13. She reports having some vaginal bleeding. She reports having this periodically at home to a milder extent. She denies any perineal pain. March 15. She reports no further vaginal bleeding and has no new complaints. March 17. She reports no further vaginal bleeding and feels better overall. She feels she is making progress in therapy. She is not quite back to her baseline level of function prior to hospitalization at [facility] however. March 19. She has no new complaints. She states she was seen at the orthopedist office this morning. She was told she should be nonweightbearing on her right leg and additional testing was needed for the knee. March 22. She has no new complaints except right knee pain which started last week. She reports she is to get a "3-D study" of the knee but is uncertain exactly what test the orthopedist is referring to. March 25. She has no new complaints. She states she is scheduled for a bone scan in one week March 27. She has no new complaints except occasional coughing. March 30. She has no new complaints April 02. She has no new complaints. She states she is scheduled for a bone scan of her right leg tomorrow April 06. She has no new complaints. She had a good report on her bone scan and was cleared by her orthopedist to bear weight on the right leg. April 08. She has no new complaints. She is standing in therapy but is not progressing well as far as overall right leg function per therapist report. April 10. She has no new complaints. - Constitutional Vitals: Temp Pulse Resp BP Pulse Ox 98.0 F 88 18 126/70 93 L 04/10/16 06:49 04/10/16 12:53 04/10/16 12:53 04/10/16 12:53 04/10/16 12:53 Exam: She is lying comfortably in bed. Her extremities show no pitting edema. Her affect is bright and cheerful. I reviewed her medications and lab results. Internal Medicine: Result - Labs CBC & Chem 7: 04/06/16 04:50 04/06/16 04:50 - ABG Interpretation ABG results: PT/INR, D-dimer PT 22.1 Seconds (9.4-12.1) H 04/10/16 06:34 Consult Discharge Plan - Plan Referrals: NO,PCP [Primary Care Provider] - 1 week
[2016-04-10] MEDS: *HR* Warfarin 5 MG TABLET PO SCH (18:39)
[2016-04-10] MEDS: *HR* Warfarin 2 MG TABLET PO SCH (18:39)
[2016-04-10] MEDS: D5 IVPB SCH (22:34)
[2016-04-10] MEDS: CEFTRIAXONE IVPB SCH (22:34)
[2016-04-10] MEDS: WATER IVPB SCH (22:34)
[2016-04-10] MEDS: Insulin DETEMIR 100 UNIT/ML X5UNITS SQ SCH (22:36)
[2016-04-11] MEDS: Diltiazem CD (24hr) 300 MG CAPSULE PO SCH (09:12)
[2016-04-11] MEDS: Gabapentin 300 MG CAPSULE PO SCH ×2 (09:13→20:29)
[2016-04-11] MEDS: Lactobacillus 1 EACH CAP.SPRINK PO SCH ×2 (09:13→20:28)
[2016-04-11] MEDS: Multivit/Ca/Min/Fe/FA 1 TAB TABLET PO SCH (09:13)
[2016-04-11] MEDS: *HR* Glimepiride 2 MG TABLET PO SCH (09:13)
[2016-04-11] MEDS: Insulin LISPRO 300 UNITS/3 ML VIAL SQ SCH ×7 (09:18→20:32)
[2016-04-11] MEDS: *HR* HYDROcodone/Acet 5/325 mg TABLET PO PRN (17:22)
[2016-04-11] MEDS: *HR* Warfarin 2 MG TABLET PO SCH (17:24)
[2016-04-11] MEDS: *HR* Warfarin 5 MG TABLET PO SCH (17:24)
[2016-04-11] MEDS: CEFTRIAXONE IVPB SCH (17:27)
[2016-04-11] MEDS: WATER IVPB SCH (17:27)
[2016-04-11] MEDS: D5 IVPB SCH (17:27)
[2016-04-11] MEDS: Insulin DETEMIR 100 UNIT/ML X5UNITS SQ SCH (20:32)
[2016-04-12] MEDS: *HR* Glimepiride 2 MG TABLET PO SCH (07:52)
[2016-04-12] MEDS: Gabapentin 300 MG CAPSULE PO SCH ×2 (07:53→21:12)
[2016-04-12] MEDS: Lactobacillus 1 EACH CAP.SPRINK PO SCH ×2 (07:53→21:12)
[2016-04-12] MEDS: Diltiazem CD (24hr) 300 MG CAPSULE PO SCH (07:53)
[2016-04-12] MEDS: Multivit/Ca/Min/Fe/FA 1 TAB TABLET PO SCH (07:53)
[2016-04-12] MEDS: Insulin LISPRO 300 UNITS/3 ML VIAL SQ SCH ×7 (07:54→21:13)
[2016-04-12] MEDS: *HR* Warfarin 5 MG TABLET PO SCH (17:21)
[2016-04-12] MEDS: *HR* Warfarin 2 MG TABLET PO SCH (17:22)
[2016-04-12] MEDS: D5 IVPB SCH (18:56)
[2016-04-12] MEDS: WATER IVPB SCH (18:56)
[2016-04-12] MEDS: CEFTRIAXONE IVPB SCH (18:56)
[2016-04-12] MEDS: Insulin DETEMIR 100 UNIT/ML X5UNITS SQ SCH (21:12)
[2016-04-13] MEDS: Insulin LISPRO 300 UNITS/3 ML VIAL SQ SCH ×7 (08:19→21:28)
[2016-04-13] MEDS: Multivit/Ca/Min/Fe/FA 1 TAB TABLET PO SCH (08:20)
[2016-04-13] MEDS: Gabapentin 300 MG CAPSULE PO SCH ×2 (08:20→21:27)
[2016-04-13] MEDS: Diltiazem CD (24hr) 300 MG CAPSULE PO SCH (08:20)
[2016-04-13] MEDS: Lactobacillus 1 EACH CAP.SPRINK PO SCH ×2 (08:20→21:26)
[2016-04-13] MEDS: *HR* Glimepiride 2 MG TABLET PO SCH (08:20)
--- NOTE | 2016-04-13 17:22 | Internal Med Progress Note ---
Date of Encounter: 04/13/16 Time of Encounter: 17:00 - Assessment and plan (1) Bacteremia due to group B Streptococcus Current Visit: No Status: Acute Assessment and plan: 03/11/16 elevated white count continued IV Rocephin follow up a CBC on WednesdayMarch 12 and 3 times a day Rocephin follow-up CBC tomorrow to establish if the white count is coming down March 13. Continue IV Rocephin to complete 6 week course March 19. Continue Rocephin. I explained to her that Rocephin could be administered by home health nurses at home if she gets clearance from the orthopedist/therapy to return home. March 22. Continue Rocephin. I will add lactobacillus. She is eating yogurt regularly. I will discontinue PPI. March 27. Continue Rocephin and lactobacillus March 30. Continue Rocephin and lactobacillus April 03 continue Rocephin and lactobacilli April 06. She has now completed 4.5-5 weeks of IV antibiotic. Continue IV antibiotics for another 7-10 days. April 08. Anticipate stopping antibiotics April 15. (2) Knee pain, right Current Visit: No Status: Chronic Assessment and plan: 03/11/16 continue rehabilitation, concerned about infection in the knee continue the Neurontin. March 13. She did not mention this today. Continue therapy and present pain management program March 19. As per orthopedist April 02. Anticipate bone scan tomorrow with orthopedic follow-up. April 03 scan today will follow-up the follow-up the results orthopedics to follow April 06. As per above. Will increase therapy intensity and anticipate discharge home in 7-10 days. April 08. There was a consensus in swing bed conference today that she will likely need SNF placement April 10. Continue present treatment. Anticipate discharge to SNF April 13 April 13. She has been accepted at [facility] for discharge tomorrow Qualifiers: Chronicity: acute Qualified Code(s): M25.561 - Pain in right knee (3) Non-insulin dependent type 2 diabetes mellitus Current Visit: No Status: Chronic Assessment and plan: 03/11/16 continue the insulin sliding scale, probably elevated because of the infection March 12 continue sliding scale insulin, BMP in the morning March 13. Continue Amaryl, Levemir, and Accu-Cheks with SSI. Hemoglobin A1c 7.3% on 03/11/2016. March 15. Accu-Cheks show good control. Continue present regimen April 02. Accu-Cheks continued to show good control. Continue present regimen April 03 to control continue the Amaryl, Levemir, Accu-Cheks with sliding scale April 06. Accu-Cheks remain well controlled. Continue present regimen. (4) Atrial fibrillation with RVR Current Visit: No Status: Resolved Assessment and plan: 03/11/16 continue the Coumadin will check a PT/INR March 12 continue Coumadin, PT/INR in the morning March 13. Her INR is subtherapeutic. We will increase Coumadin dose. March 15. Continue Coumadin and monitor INR periodically. March 17. We will check ProTime in a.m. March 19. Pro time is subtherapeutic. We will increase Coumadin dose. March 22. Pro time is still subtherapeutic. We will increase Coumadin dose to 4.5 mg daily. March 25. Recheck pro time in a.m. March 27. Pro time remains slightly subtherapeutic. We will increase Coumadin to 5 mg daily. March 30. Recheck pro time in a.m. with other labs. April 02. We will recheck pro time in a.m. The dose was increased to 6.5 mg daily on 03/31/2016 April 03 increase the Coumadin 7 mg and recheck the pro-time on WednesdayApril 06. Continue Coumadin and monitoring pro time April 10. INR was 2.0 today. Continue present treatment April 13. Will recheck labs in a.m. (5) Anemia Current Visit: Yes Status: Chronic Assessment and plan: 03/11/16 probably stable follow up the CBC, MCV is normal summer anemia stable ferritin is high even though iron is low, no iron supplement as needed March 13. Anemia testing 03/11/2016 showed no factor deficiency. March 25. Recheck labs in a.m. March 27. Hemoglobin stable at 8.8 yesterday. March 30. Recheck labs in a.m. April 02. Recheck labs in a.m. April 04. hemoglobin dropped to 8.2 recheck labs on WednesdayApril 08. Continue to monitor labs April 13. Recheck labs in a.m. Qualifiers: Anemia type: unspecified type Qualified Code(s): D64.9 - Anemia, unspecified - Subjective Interval history: March 13. She reports having some vaginal bleeding. She reports having this periodically at home to a milder extent. She denies any perineal pain. March 15. She reports no further vaginal bleeding and has no new complaints. March 17. She reports no further vaginal bleeding and feels better overall. She feels she is making progress in therapy. She is not quite back to her baseline level of function prior to hospitalization at [facility] however. March 19. She has no new complaints. She states she was seen at the orthopedist office this morning. She was told she should be nonweightbearing on her right leg and additional testing was needed for the knee. March 22. She has no new complaints except right knee pain which started last week. She reports she is to get a "3-D study" of the knee but is uncertain exactly what test the orthopedist is referring to. March 25. She has no new complaints. She states she is scheduled for a bone scan in one week March 27. She has no new complaints except occasional coughing. March 30. She has no new complaints April 02. She has no new complaints. She states she is scheduled for a bone scan of her right leg tomorrow April 06. She has no new complaints. She had a good report on her bone scan and was cleared by her orthopedist to bear weight on the right leg. April 08. She has no new complaints. She is standing in therapy but is not progressing well as far as overall right leg function per therapist report. April 10. She has no new complaints. April 13. She has no new complaints - Constitutional Vitals: Temp Pulse Resp BP Pulse Ox 97.7 F 97 18 123/69 97 04/13/16 07:03 04/13/16 12:53 04/13/16 12:53 04/13/16 12:53 04/13/16 12:53 Exam: She is sitting comfortably in chair and appears in no distress. Her affect is bright and cheerful. I reviewed her medications and lab results. Internal Medicine: Result - Labs CBC & Chem 7: 04/06/16 04:50 04/06/16 04:50 - ABG Interpretation ABG results: PT/INR, D-dimer PT 22.1 Seconds (9.4-12.1) H 01/27/17 06:34 Consult Discharge Plan - Plan Referrals: NO,PCP [Primary Care Provider] - 1 week
[2016-04-13] MEDS: *HR* Warfarin 5 MG TABLET PO SCH (17:43)
[2016-04-13] MEDS: *HR* Warfarin 2 MG TABLET PO SCH (17:43)
[2016-04-13] MEDS: CEFTRIAXONE IVPB SCH (21:26)
[2016-04-13] MEDS: D5 IVPB SCH (21:26)
[2016-04-13] MEDS: WATER IVPB SCH (21:26)
[2016-04-13] MEDS: Insulin DETEMIR 100 UNIT/ML X5UNITS SQ SCH (21:27)
[2016-04-14 05:11] LABS: Basophils # 0.1 K/mcL (0.0-0.2); Basophils % 0.6 %; Eosinophils # 0.3 K/mcL (0.0-0.6); Eosinophils % 3.2 %; Hematocrit 27.6 % (35.3-44.9); Hemoglobin 8.4 g/dL (11.5-15.4); Immature Granulocytes % 0.3 % (0-4); Lymphocytes % 22.6 %; Mean Corpuscular HGB Conc 30.4 g/dL (31.6-35.5); Mean Corpuscular Hemoglobin 28.2 pg (28.0-33.3); Mean Corpuscular Volume 92.6 fL (83.0-100.0); Monocytes # 0.7 K/mcL (0.0-1.3); Monocytes % 7.4 %; Neutrophils # 5.8 K/mcL (1.6-8.9); Platelet Count 480 K/mcL (140-400); Red Blood Count 2.98 M/mcL (3.82-4.97); Red Cell Distribution Width 14.8 % (11.5-14.5); Segmented Neutrophils % 65.9 %
[2016-04-14 05:19] LABS: Prothrombin Time 22.5 Seconds (9.4-12.1)
[2016-04-14 05:37] LABS: BUN/Creatinine Ratio 23 (6-26); Blood Urea Nitrogen 15 mg/dL (7-20); Calcium 8.6 mg/dL (8.6-10.8); Carbon Dioxide 27 mEq/L (19-29); Chloride 104 mEq/L (98-109); Glucose 131 mg/dL (70-99); Osmolality,Calculated 297 (280-300); Potassium 4.4 mEq/L (3.5-4.5); Sodium 142 mEq/L (136-145); eGFR For African Americans > 60 (> 60); eGFR For Non-African Americans > 60 (> 60)
[2016-04-14 07:38] VITALS: BP 124/70
[2016-04-14] MEDS: *HR* Glimepiride 2 MG TABLET PO SCH (09:20)
[2016-04-14] MEDS: Multivit/Ca/Min/Fe/FA 1 TAB TABLET PO SCH (09:22)
[2016-04-14] MEDS: Lactobacillus 1 EACH CAP.SPRINK PO SCH (09:23)
[2016-04-14] MEDS: Gabapentin 300 MG CAPSULE PO SCH (09:24)
[2016-04-14] MEDS: Diltiazem CD (24hr) 300 MG CAPSULE PO SCH (09:24)
--- NOTE | 2016-04-14 10:29 | Discharge Summary ---
Date of Encounter: 04/14/16 Time of Encounter: 10:00 - Discharge Diagnosis (1) Bacteremia due to group B Streptococcus Priority: Primary Status: Acute (2) Knee pain, right Priority: Secondary Status: Chronic Qualifiers: Chronicity: acute Qualified Code(s): M25.561 - Pain in right knee (3) Non-insulin dependent type 2 diabetes mellitus Priority: Secondary Status: Chronic (4) Atrial fibrillation with RVR Priority: Secondary Status: Resolved (5) Anemia Priority: Secondary Status: Chronic Qualifiers: Anemia type: unspecified type Qualified Code(s): D64.9 - Anemia, unspecified - Discharge Medications Prescriptions: HYDROcodone/Acet 5/325 mg [[place] 5-325 mg] 1 tab PO Q4HR PRN #40 tablet PRN Reason: Pain Gabapentin [Neurontin] 300 mg PO BID #14 capsule Home Medications: Multivitamin [Multi-Day Vitamins] 1 each PO DAILY 03/04/16 [History] Pravastatin Sodium 80 mg PO HS 03/04/16 [History] Sertraline [Zoloft] 100 mg PO DAILY 03/04/16 [History] Acetaminophen [Tylenol] 650 mg PO Q6HR PRN #0 tablet 03/09/16 [Rx] Diltiazem CD (24hr) [Cardizem CD] 300 mg PO DAILY 30 Days 03/09/16 [Rx] Insulin DETEMIR [Levemir] 20 unit SQ HS [id number] 03/09/16 [Rx] Insulin LISPRO [HumaLOG] 0 units SQ HS vial 03/09/16 [Rx] Insulin LISPRO [HumaLOG] 0 units SQ TIDAC vial 03/09/16 [Rx] Insulin LISPRO [HumaLOG] 7 units SQ TIDWM vial 03/09/16 [Rx] Nystatin POWDER [Nystop] 1 appl TP BID 30 Days 03/09/16 [Rx] Omeprazole [PriLOSEC] 20 mg PO DAILY@0630 capsule. 03/09/16 [Rx] Sertraline [Zoloft] 50 mg PO DAILY tablet 03/09/16 [Rx] Cyclobenzaprine [Flexeril] 10 mg PO TID@0900,1700,2300 tablet 04/14/16 [Rx] Gabapentin [Neurontin] 300 mg PO BID #14 capsule 01/31/17 [Rx] Glimepiride [Amaryl] 3 mg PO DAILY #0 04/14/16 [Rx] HYDROcodone/Acet 5/325 mg [[place] 5-325 mg] 1 tab PO Q4HR PRN #40 tablet [Rx] Warfarin [Coumadin] 2 mg PO DAILY@1800 tablet 04/14/16 [Rx] Warfarin [Coumadin] 5 mg PO DAILY@1800 tablet 04/14/16 [Rx] Allergies/Adverse Reactions: Allergies metformin Allergy (Verified 03/04/16 10:31) Diarrhea Date of admission: 03/09/16 18:50 Primary care physician: Alejandro Lindo M.D. Consults: 03/09/16 19:49 Consult to Occupational Therapy [CONS] Routine Comment: to evaluate, develop, and imploment POC Consult to Physical Therapy [CONS] Routine Comment: to evaluate, develop, and implement -ok to bear wt Consult to [employer] [CONS] Routine Reason for SW Consult: to evaulate for discharge needs 03/09/16 20:09 Consult to [employer] [CONS] Routine Comment: - Patient Status Disposition: Transfer SNF Functional capacity at discharge: uses cane/walker Overall status at discharge: patient is progressing back to baseline - Discharge Instructions - Diet and Activity Activity: as per physical therapy Diet: diabetic diet Hospital course: Ms. Ambrose is a 61 year old female who was hospitalized at [facility] March 01- after presenting with one-week history of fever and nausea. She complained of right leg pain. She had group B strep found on PCR serology. The source of the bacteremia was not determined with certainty. She had right knee aspiration attempted without fluid obtained. It was felt she deserved 6 weeks of IV antibiotic treatment. She was admitted to [facility] swing bed for ongoing care needs. Initial orders were written by the discharging physicians at [facility]. I saw her on March 10 and performed a swing bed history and physical. She continued on IV Rocephin throughout the swing bed. Her last dose was April 14. She remained afebrile during her hospital stay. She had physical therapy and occupational therapy evaluation and ongoing interventions. She made significant progress but it was felt she would benefit from SNF placement to continue ongoing therapy prior to attempting discharge home. She had less knee pain as her swing bed stay progress. Hemoglobin A1c was 7.3% on 03/11/2016. She will continue present dose of Amaryl and Levemir. Her INR was satisfactory on Coumadin dose 7 mg daily. She will continue this at discharge to [facility]. Anemia testing showed iron 21, transferrin saturation 12%, ferritin 1445, folate 8.9, and B12 379. On April 14 arrangements were complete for her to be discharged to [facility] for ongoing care needs. - Time Spent with Patient Total time spent providing and/or coordinating discharge services: - Constitutional Vitals: Temp Pulse Resp BP Pulse Ox 98.4 F 99 16 124/70 94 L 04/14/16 07:36 04/14/16 07:36 04/14/16 07:36 04/14/16 07:36 04/14/16 07:36
--- NOTE | 2016-04-14 10:39 | Physician Discharge Referral ---
ExtendedCare Referral Info Transfer To: [facility] Provider in Charge: Bj Provider in Charge after Transfer: PCP - Diagnosis (1) Bacteremia due to group B Streptococcus Priority: Primary Status: Acute (2) Knee pain, right Priority: Secondary Status: Chronic (3) Non-insulin dependent type 2 diabetes mellitus Priority: Secondary Status: Chronic (4) Atrial fibrillation with RVR Priority: Secondary Status: Resolved (5) Anemia Priority: Secondary Status: Chronic Prognosis: Good Aware of Diagnosis: Patient Aware of Prognosis: Patient - Transfer Medications Prescriptions: HYDROcodone/Acet 5/325 mg [[place] 5-325 mg] 1 tab PO Q4HR PRN #40 tablet PRN Reason: Pain Gabapentin [Neurontin] 300 mg PO BID #14 capsule Home Medications: Multivitamin [Multi-Day Vitamins] 1 each PO DAILY 03/04/16 [History] Pravastatin Sodium 80 mg PO HS 03/04/16 [History] Sertraline [Zoloft] 100 mg PO DAILY 03/04/16 [History] Acetaminophen [Tylenol] 650 mg PO Q6HR PRN #0 tablet 03/09/16 [Rx] Diltiazem CD (24hr) [Cardizem CD] 300 mg PO DAILY 30 Days 03/09/16 [Rx] Insulin DETEMIR [Levemir] 20 unit SQ HS [id number] 03/09/16 [Rx] Insulin LISPRO [HumaLOG] 0 units SQ HS vial 03/09/16 [Rx] Insulin LISPRO [HumaLOG] 0 units SQ TIDAC vial 03/09/16 [Rx] Insulin LISPRO [HumaLOG] 7 units SQ TIDWM vial 03/09/16 [Rx] Nystatin POWDER [Nystop] 1 appl TP BID 30 Days 03/09/16 [Rx] Omeprazole [PriLOSEC] 20 mg PO DAILY@0630 capsule. 03/09/16 [Rx] Sertraline [Zoloft] 50 mg PO DAILY tablet 03/09/16 [Rx] Cyclobenzaprine [Flexeril] 10 mg PO TID@0900,1700,2300 tablet 04/14/16 [Rx] Gabapentin [Neurontin] 300 mg PO BID #14 capsule 04/14/16 [Rx] Glimepiride [Amaryl] 3 mg PO DAILY #0 04/14/16 [Rx] HYDROcodone/Acet 5/325 mg [[place] 5-325 mg] 1 tab PO Q4HR PRN #40 tablet [Rx] Warfarin [Coumadin] 2 mg PO DAILY@1800 tablet 04/14/16 [Rx] Warfarin [Coumadin] 5 mg PO DAILY@1800 tablet 04/14/16 [Rx] Allergies/Adverse Reactions: Allergies metformin Allergy (Verified 03/04/16 10:31) Diarrhea - Respiratory Orders Smoking Cessation: Smoking cessation has been advised. For more information, call the [place] Tobacco Quit Line at 6-140-CVSW-NOW. - Mobility Orders Ambulate - Rehabiliation Orders Rehab Orders: Evaluation for Physical Therapy, Evaluation for Occupational Therapy - Diet Orders No Concentrated Sweets CERTIFICATION: I certify that the transfer of the above named patient to an Extended Care Facility is necessary for the continuing treatment of the diagnosis listed. The above information is true and accurate reflection of patient's current condition. Confidential - Redisclosure prohibited without a patient's written consent.
[2016-04-14] MEDS: Insulin LISPRO 300 UNITS/3 ML VIAL SQ SCH ×4 (10:44→12:14)
[2016-04-14] MEDS: CEFTRIAXONE IVPB SCH (12:50)
[2016-04-14] MEDS: WATER IVPB SCH (12:50)
[2016-04-14] MEDS: D5 IVPB SCH (12:50)
== END 2016-04-14 14:48 | DRG 872 ==
LOC: INPPIK 03-09 18:50
PROVIDERS: ADMIT Internal Medicine; ATTEND Internal Medicine